=== PATIENT | male | born 1945 | race Caucasian/White ===

== ENCOUNTER → 2023-12-11 08:03 | Outpatient (REF) | payer MEDICARE, BC, SELFPAY ==
[2023-12-11 09:04] LABS: Iron 41 ug/dl (49-181)
[2023-12-11 09:13] LABS: Percent Saturation 10 % (20-50); Total Iron Binding Capacity 406 ug/dl (261-462)
[2023-12-11 09:37] LABS: Ferritin 6.9 ng/ml (17.9-464.0)
== END ==
LOC: REG 08:03
PROVIDERS: ATTENDING PHYSICIAN Internal Medicine Geriatric Medicine
DX: D50.0 Iron deficiency anemia secondary to blood loss (chronic) (principal); D64.9 Anemia, unspecified; D50.8 Other iron deficiency anemias
CPT/HCPCS: 36415; 82728; 83540; 83550

== ENCOUNTER 2024-01-03 11:39 | Outpatient (RCR) | payer MEDICARE, BC, SELFPAY ==
[2023-12-27 14:45] VITALS: BP 119/59
[2023-12-27] MEDS: INJECTAFER 265 MG IV (14:59)
[2023-12-27 15:41] VITALS: BP 115/66
[2024-01-03 11:50] VITALS: BP 139/58
[2024-01-03] MEDS: INJECTAFER 265 MG IV (12:05)
[2024-01-03 13:00] VITALS: BP 120/66
== END 2024-01-04 11:12 | disposition home or self-care (01) ==
LOC: OID 11:39
PROVIDERS: ATTENDING PHYSICIAN Internal Medicine Geriatric Medicine
DX: D50.9 Iron deficiency anemia, unspecified (principal); I48.0 Paroxysmal atrial fibrillation; R41.3 Other amnesia; I50.32 Chronic diastolic (congestive) heart failure
CPT/HCPCS: 96365; J1439

== ENCOUNTER → 2024-01-20 07:21 | Outpatient (REF) | payer MEDICARE, BC, SELFPAY ==
[2024-01-20 09:24] LABS: Blood Urea Nitrogen 28 mg/dl (9-20); Calcium 8.8 mg/dl (8.4-10.2); Carbon Dioxide 30 mmol/L (22-30); Chloride 103 mmol/L (98-107); Glucose 121 mg/dl (70-99); Phosphorus 2.6 mg/dl (2.5-4.5); Potassium 4.2 mmol/L (3.5-5.1); Sodium 141 mmol/L (135-145); eGFR 56.23
== END ==
LOC: REG 07:21
PROVIDERS: ATTENDING PHYSICIAN Internal Medicine Cardiovascular Disease; FAMILY PHYSICIAN Internal Medicine Geriatric Medicine
DX: I10 Essential (primary) hypertension (principal); I50.32 Chronic diastolic (congestive) heart failure; R60.0 Localized edema; I25.10 Atherosclerotic heart disease of native coronary artery without angina pectoris
CPT/HCPCS: 36415; 80069

== ENCOUNTER → 2024-02-17 07:51 | Outpatient (REF) | payer MEDICARE, BC, SELFPAY ==
[2024-02-17 11:00] LABS: PSA, Total - Diagnostic < 0.06 ng/ml (0.0-4.0)
[2024-02-19 02:25] LABS: % Free Testosterone <1.6 % (1.6-2.9); Free Testosterone <1 pg/mL (47-244); Sex Hormone Binding Globulin 36 nmol/L (19-76); Total Testosterone <3 ng/dL (300-720)
== END ==
LOC: REG 07:51
PROVIDERS: ATTENDING PHYSICIAN Family Medicine Geriatric Medicine; FAMILY PHYSICIAN Internal Medicine Geriatric Medicine
DX: C61 Malignant neoplasm of prostate (principal); Z79.818 Long term (current) use of other agents affecting estrogen receptors and estrogen levels
CPT/HCPCS: 36415; 84153; 84270; 84402; 84403

== ENCOUNTER → 2024-02-24 07:14 | Outpatient (REF) | payer MEDICARE, BC, SELFPAY ==
[2024-02-24 08:41] LABS: % Basophils 0.4 % (0-2); % Eosinophils 2.4 % (0-6); % Immature Granulocytes 0.2 % (0-0.5); % Lymphocytes 11.5 % (20.5-51.1); % Monocytes 11.5 % (1.7-9.3); Absolute Eosinophils 0.1 10^3/uL (0-0.7); Absolute Lymphocytes 0.5 10^3/uL (1.2-3.4); Absolute Monocytes 0.5 10^3/uL (0.1-0.6); Absolute Neutrophils 3.4 10^3/uL (1.4-6.5); Hematocrit 22.7 % (39.0-52.0); Hemoglobin 6.6 g/dL (13.0-18.0); Mean Corp Hgb Conc. 29.1 g/dL (33.0-37.0); Mean Corpuscular Volume 82.5 fL (80.0-94.0); Mean Platelet Volume 10.7 fL (7.4-10.4); Nucleated Red Blood Cells % 0 % (-); Platelet Count 181 10^3/uL (130-400); Red Blood Cell Count 2.75 10^6/uL (4.70-6.10); Red Cell Dist. Width 19.9 % (11.5-14.5); White Blood Cell Count 4.6 10^3/uL (4.8-10.8)
[2024-02-24 08:57] LABS: Iron 32 ug/dl (49-181)
[2024-02-24 09:06] LABS: Percent Saturation 8 % (20-50); Total Iron Binding Capacity 391 ug/dl (261-462)
== END ==
LOC: REG 07:14
PROVIDERS: ATTENDING PHYSICIAN Internal Medicine Hematology & Oncology
DX: D64.9 Anemia, unspecified (principal); E61.1 Iron deficiency; Z85.46 Personal history of malignant neoplasm of prostate
CPT/HCPCS: 36415; 82728; 83540; 83550; 85025; 86850; 86900; 86901

== ENCOUNTER 2024-02-28 08:20 | Outpatient (RCR) | payer MEDICARE, BC, SELFPAY ==
[2024-02-28 09:05] VITALS: BP 117/58
[2024-02-28 09:22] VITALS: BP 136/60
[2024-02-28 11:17] VITALS: BP 152/85
[2024-02-28 11:24] VITALS: BP 152/85
[2024-02-28] MEDS: LASIX 40 MG IV (11:34)
[2024-02-28 11:41] VITALS: BP 131/61
[2024-02-28 14:13] VITALS: BP 140/69
[2024-03-04 11:40] LABS: % Basophils 0.6 % (0-2); % Eosinophils 2.3 % (0-6); % Immature Granulocytes 0.4 % (0-0.5); % Lymphocytes 7.4 % (20.5-51.1); % Monocytes 8.2 % (1.7-9.3); % Neutrophils 81.1 % (42.2-75.2); Absolute Eosinophils 0.1 10^3/uL (0-0.7); Absolute Lymphocytes 0.4 10^3/uL (1.2-3.4); Absolute Monocytes 0.4 10^3/uL (0.1-0.6); Absolute Neutrophils 3.8 10^3/uL (1.4-6.5); Hematocrit 25.6 % (39.0-52.0); Hemoglobin 7.6 g/dL (13.0-18.0); Mean Corp Hgb Conc. 29.7 g/dL (33.0-37.0); Mean Corpuscular Hgb 24.1 pg (27.0-31.0); Mean Corpuscular Volume 81.3 fL (80.0-94.0); Mean Platelet Volume 10.7 fL (7.4-10.4); Nucleated Red Blood Cells % 0 % (-); Platelet Count 187 10^3/uL (130-400); Red Blood Cell Count 3.15 10^6/uL (4.70-6.10); Red Cell Dist. Width 20.8 % (11.5-14.5); White Blood Cell Count 4.7 10^3/uL (4.8-10.8)
== END 2024-03-04 14:34 | disposition home or self-care (01) ==
LOC: OID 08:20
PROVIDERS: Internal Medicine Hematology & Oncology; ATTENDING PHYSICIAN Internal Medicine Geriatric Medicine
DX: D64.9 Anemia, unspecified (principal); T45.4X5A Adverse effect of iron and its compounds, initial encounter; Y93.89 Activity, other specified; I48.91 Unspecified atrial fibrillation; Z79.01 Long term (current) use of anticoagulants
CPT/HCPCS: 36415; 36430; 85025; 86850; 86900; 86901; 86920; 96374; P9016

== ENCOUNTER → 2024-03-06 06:23 | Day surgery (SDC) | payer MEDICARE, BC, SELFPAY | LOC: GI 06:23 | PROVIDERS: ATTENDING PHYSICIAN Specialist | DX: D12.0 Benign neoplasm of cecum (principal); D12.3 Benign neoplasm of transverse colon; K63.5 Polyp of colon; K57.30 Diverticulosis of large intestine without perforation or abscess without bleeding; K22.89 Other specified disease of esophagus; K31.7 Polyp of stomach and duodenum; K31.89 Other diseases of stomach and duodenum; D50.9 Iron deficiency anemia, unspecified; R19.5 Other fecal abnormalities | CPT/HCPCS: 45385; 45380; 43239; 88305; 88342 ==

== ENCOUNTER 2024-03-07 10:02 | Outpatient (RCR) | payer MEDICARE, BC, SELFPAY ==
[2024-03-07] VITALS (7 sets, daily range): BP systolic 96–150; BP diastolic 49–74
== END 2024-04-05 23:59 | disposition home or self-care (01) ==
LOC: OID 10:02
PROVIDERS: ATTENDING PHYSICIAN Internal Medicine Hematology & Oncology; FAMILY PHYSICIAN Internal Medicine Geriatric Medicine
DX: D64.9 Anemia, unspecified (principal); T45.4X5A Adverse effect of iron and its compounds, initial encounter; Y93.89 Activity, other specified; I48.91 Unspecified atrial fibrillation; Z79.01 Long term (current) use of anticoagulants
CPT/HCPCS: 36430; 86850; 86900; 86901; 86920; P9016

== ENCOUNTER → 2024-03-28 09:42 | Outpatient (REF) | payer MEDICARE, BC, SELFPAY ==
[2024-03-28 11:05] LABS: % Basophils 0.4 % (0-2); % Eosinophils 2.9 % (0-6); % Immature Granulocytes 0.4 % (0-0.5); % Monocytes 8.8 % (1.7-9.3); % Neutrophils 76.5 % (42.2-75.2); Absolute Eosinophils 0.2 10^3/uL (0-0.7); Absolute Lymphocytes 0.6 10^3/uL (1.2-3.4); Absolute Monocytes 0.5 10^3/uL (0.1-0.6); Hematocrit 28.9 % (39.0-52.0); Hemoglobin 8.9 g/dL (13.0-18.0); Mean Corp Hgb Conc. 30.8 g/dL (33.0-37.0); Mean Corpuscular Hgb 27.4 pg (27.0-31.0); Mean Corpuscular Volume 88.9 fL (80.0-94.0); Mean Platelet Volume 10.9 fL (7.4-10.4); Nucleated Red Blood Cells % 0 % (-); Platelet Count 165 10^3/uL (130-400); Red Blood Cell Count 3.25 10^6/uL (4.70-6.10); Red Cell Dist. Width 22.5 % (11.5-14.5); White Blood Cell Count 5.2 10^3/uL (4.8-10.8)
[2024-03-28 11:56] LABS: Anisocytosis 2+; Normal RBC Morphology No
[2024-03-28 11:57] LABS: Hypochromasia 2+
== END ==
LOC: REG 09:42
PROVIDERS: ATTENDING PHYSICIAN Specialist; FAMILY PHYSICIAN Internal Medicine Geriatric Medicine
DX: K31.811 Angiodysplasia of stomach and duodenum with bleeding (principal)
CPT/HCPCS: 36415; 85025

== ENCOUNTER → 2024-03-29 06:34 | Day surgery (SDC) | payer MEDICARE, BC, SELFPAY | LOC: GI 06:34 | PROVIDERS: ATTENDING PHYSICIAN Specialist; FAMILY PHYSICIAN Internal Medicine Geriatric Medicine | DX: D50.0 Iron deficiency anemia secondary to blood loss (chronic) (principal); R93.3 Abnormal findings on diagnostic imaging of other parts of digestive tract; Z79.01 Long term (current) use of anticoagulants | CPT/HCPCS: 43235 ==

== ENCOUNTER → 2024-04-12 09:00 | Outpatient (REF) | payer MEDICARE, BC, SELFPAY ==
[2024-04-12 10:35] LABS: % Basophils 0.7 % (0-2); % Eosinophils 2.3 % (0-6); % Immature Granulocytes 0.2 % (0-0.5); % Lymphocytes 9.6 % (20.5-51.1); % Monocytes 9.4 % (1.7-9.3); % Neutrophils 77.8 % (42.2-75.2); Absolute Eosinophils 0.1 10^3/uL (0-0.7); Absolute Lymphocytes 0.6 10^3/uL (1.2-3.4); Absolute Monocytes 0.5 10^3/uL (0.1-0.6); Absolute Neutrophils 4.5 10^3/uL (1.4-6.5); Hematocrit 29.7 % (39.0-52.0); Hemoglobin 8.8 g/dL (13.0-18.0); Mean Corp Hgb Conc. 29.6 g/dL (33.0-37.0); Mean Corpuscular Hgb 26.4 pg (27.0-31.0); Mean Corpuscular Volume 89.2 fL (80.0-94.0); Mean Platelet Volume 10.2 fL (7.4-10.4); Nucleated Red Blood Cells % 0 % (-); Platelet Count 213 10^3/uL (130-400); Red Blood Cell Count 3.33 10^6/uL (4.70-6.10); Red Cell Dist. Width 19.5 % (11.5-14.5); White Blood Cell Count 5.8 10^3/uL (4.8-10.8)
[2024-04-12 10:54] LABS: Urine Albumin Negative (Neg - Trace); Urine Bilirubin Negative (Negative); Urine Character Clear (Clear); Urine Color Yellow; Urine Glucose Negative (Negative); Urine Ketone Negative (Negative); Urine Leukocyte Negative (Negative); Urine Nitrite Negative (Negative); Urine Occult Blood Negative (Negative); Urine Specific Gravity 1.015 (<1.030); Urine Urobilinogen Negative (Neg - 1+)
[2024-04-12 12:28] LABS: ALT (SGPT) 17 U/L (0-50); AST (SGOT) 22 U/L (17-59); Albumin 4.3 g/dl (3.5-5.0); Alkaline Phosphatase 64 U/L (38-126); Blood Urea Nitrogen 31 mg/dl (9-20); Calcium 9.9 mg/dl (8.4-10.2); Carbon Dioxide 30 mmol/L (22-30); Chloride 101 mmol/L (98-107); Glucose 115 mg/dl (70-99); HDL Cholesterol 38 mg/dl; Iron 41 ug/dl (49-181); LDL Cholesterol, Calculated 52 mg/dl; Potassium 3.6 mmol/L (3.5-5.1); Sodium 141 mmol/L (135-145); Total Bilirubin 0.6 mg/dl (0.2-1.3); Total Cholesterol 109 mg/dl (50-199); Total Protein 6.9 g/dl (6.3-8.2); Triglyceride 97 mg/dl (10-149); Very Low Density Lipoprotein 19 mg/dl (0-30); eGFR 56.23
[2024-04-12 12:40] LABS: Percent Saturation 11 % (20-50); Total Iron Binding Capacity 347 ug/dl (261-462)
[2024-04-12 13:13] LABS: Vitamin D, 25-OH*** 50.6 ng/mL (30-80)
[2024-04-12 13:26] LABS: TSH 1.23 uIU/ml (0.47-4.68)
== END ==
LOC: REG 09:00
PROVIDERS: ATTENDING PHYSICIAN Internal Medicine Hematology & Oncology; FAMILY PHYSICIAN Internal Medicine Geriatric Medicine; OTHER PHYSICIAN Specialist
DX: D64.9 Anemia, unspecified (principal); E61.1 Iron deficiency; Z85.46 Personal history of malignant neoplasm of prostate; D50.9 Iron deficiency anemia, unspecified; D50.0 Iron deficiency anemia secondary to blood loss (chronic); E78.2 Mixed hyperlipidemia; Z79.01 Long term (current) use of anticoagulants; R60.0 Localized edema; I48.0 Paroxysmal atrial fibrillation; G47.33 Obstructive sleep apnea (adult) (pediatric); R41.3 Other amnesia; I25.10 Atherosclerotic heart disease of native coronary artery without angina pectoris; R53.83 Other fatigue; I42.9 Cardiomyopathy, unspecified; I50.32 Chronic diastolic (congestive) heart failure; Z13.31 Encounter for screening for depression; Z79.899 Other long term (current) drug therapy
CPT/HCPCS: 36415; 80053; 80061; 81003; 82306; 82728; 83540; 83550; 84443; 85025

== ENCOUNTER → 2024-04-19 07:53 | Outpatient (REF) | payer MEDICARE, BC, SELFPAY ==
[2024-04-19 08:37] LABS: % Basophils 0.5 % (0-2); % Eosinophils 2.9 % (0-6); % Immature Granulocytes 0.2 % (0-0.5); % Lymphocytes 10.4 % (20.5-51.1); % Monocytes 10.4 % (1.7-9.3); % Neutrophils 75.6 % (42.2-75.2); Absolute Eosinophils 0.2 10^3/uL (0-0.7); Absolute Lymphocytes 0.6 10^3/uL (1.2-3.4); Absolute Monocytes 0.6 10^3/uL (0.1-0.6); Absolute Neutrophils 4.5 10^3/uL (1.4-6.5); Hematocrit 29.4 % (39.0-52.0); Hemoglobin 8.8 g/dL (13.0-18.0); Mean Corp Hgb Conc. 29.9 g/dL (33.0-37.0); Mean Corpuscular Hgb 26.1 pg (27.0-31.0); Mean Corpuscular Volume 87.2 fL (80.0-94.0); Mean Platelet Volume 10.1 fL (7.4-10.4); Nucleated Red Blood Cells % 0 % (-); Platelet Count 212 10^3/uL (130-400); Red Blood Cell Count 3.37 10^6/uL (4.70-6.10); White Blood Cell Count 5.9 10^3/uL (4.8-10.8)
== END ==
LOC: REG 07:53
PROVIDERS: ATTENDING PHYSICIAN Internal Medicine Hematology & Oncology; FAMILY PHYSICIAN Internal Medicine Geriatric Medicine
DX: D64.9 Anemia, unspecified (principal); E61.1 Iron deficiency; Z85.46 Personal history of malignant neoplasm of prostate; D50.9 Iron deficiency anemia, unspecified; R73.01 Impaired fasting glucose
CPT/HCPCS: 36415; 83036; 85025

== ENCOUNTER → 2024-04-25 09:14 | Outpatient (REF) | payer MEDICARE, BC, SELFPAY ==
[2024-04-25 11:26] LABS: % Basophils 0.4 % (0-2); % Eosinophils 2.6 % (0-6); % Immature Granulocytes 0.4 % (0-0.5); % Lymphocytes 10.6 % (20.5-51.1); % Monocytes 10.8 % (1.7-9.3); % Neutrophils 75.2 % (42.2-75.2); Absolute Eosinophils 0.1 10^3/uL (0-0.7); Absolute Lymphocytes 0.5 10^3/uL (1.2-3.4); Absolute Monocytes 0.5 10^3/uL (0.1-0.6); Absolute Neutrophils 3.7 10^3/uL (1.4-6.5); Hematocrit 28.1 % (39.0-52.0); Hemoglobin 8.5 g/dL (13.0-18.0); Mean Corp Hgb Conc. 30.2 g/dL (33.0-37.0); Mean Corpuscular Hgb 25.4 pg (27.0-31.0); Mean Corpuscular Volume 83.9 fL (80.0-94.0); Mean Platelet Volume 9.8 fL (7.4-10.4); Nucleated Red Blood Cells % 0 % (-); Platelet Count 193 10^3/uL (130-400); Red Blood Cell Count 3.35 10^6/uL (4.70-6.10); Red Cell Dist. Width 18.9 % (11.5-14.5); White Blood Cell Count 4.9 10^3/uL (4.8-10.8)
[2024-04-25 12:03] LABS: ALT (SGPT) 16 U/L (0-50); AST (SGOT) 21 U/L (17-59); Albumin 4.3 g/dl (3.5-5.0); Alkaline Phosphatase 71 U/L (38-126); Blood Urea Nitrogen 27 mg/dl (9-20); Calcium 9.6 mg/dl (8.4-10.2); Carbon Dioxide 27 mmol/L (22-30); Chloride 102 mmol/L (98-107); Glucose 113 mg/dl (70-99); HDL Cholesterol 37 mg/dl; LDL Cholesterol, Calculated 44 mg/dl; Potassium 3.5 mmol/L (3.5-5.1); Sodium 141 mmol/L (135-145); Total Bilirubin 0.5 mg/dl (0.2-1.3); Total Cholesterol 96 mg/dl (50-199); Total Protein 6.8 g/dl (6.3-8.2); Triglyceride 78 mg/dl (10-149); Very Low Density Lipoprotein 15 mg/dl (0-30); eGFR 56.23
[2024-04-25 12:15] LABS: Urine Albumin Trace (Neg - Trace); Urine Bilirubin Negative (Negative); Urine Character Clear (Clear); Urine Color Yellow; Urine Glucose Negative (Negative); Urine Ketone Negative (Negative); Urine Leukocyte Negative (Negative); Urine Nitrite Negative (Negative); Urine Occult Blood Negative (Negative); Urine Urobilinogen Negative (Neg - 1+)
[2024-04-25 12:17] LABS: Vitamin D, 25-OH*** 46.4 ng/mL (30-80)
[2024-04-25 12:31] LABS: TSH 1.67 uIU/ml (0.47-4.68)
== END ==
LOC: REG 09:14
PROVIDERS: ATTENDING PHYSICIAN Internal Medicine Hematology & Oncology; FAMILY PHYSICIAN Internal Medicine Geriatric Medicine; REFERRING PHYSICIAN Specialist
DX: D64.9 Anemia, unspecified (principal); E61.1 Iron deficiency; Z85.46 Personal history of malignant neoplasm of prostate; D50.9 Iron deficiency anemia, unspecified; I25.10 Atherosclerotic heart disease of native coronary artery without angina pectoris; E83.32 Hereditary vitamin D-dependent rickets (type 1) (type 2)
CPT/HCPCS: 36415; 80053; 80061; 81003; 82306; 84443; 85025

== ENCOUNTER → 2024-05-04 08:18 | Outpatient (REF) | payer MEDICARE, BC, SELFPAY ==
[2024-05-04 09:41] LABS: % Basophils 0.5 % (0-2); % Eosinophils 3.5 % (0-6); % Immature Granulocytes 0.2 % (0-0.5); % Lymphocytes 10.7 % (20.5-51.1); % Monocytes 10.5 % (1.7-9.3); % Neutrophils 74.6 % (42.2-75.2); Absolute Eosinophils 0.2 10^3/uL (0-0.7); Absolute Lymphocytes 0.5 10^3/uL (1.2-3.4); Absolute Monocytes 0.5 10^3/uL (0.1-0.6); Absolute Neutrophils 3.2 10^3/uL (1.4-6.5); Hematocrit 26.5 % (39.0-52.0); Hemoglobin 8.1 g/dL (13.0-18.0); Mean Corp Hgb Conc. 30.6 g/dL (33.0-37.0); Mean Corpuscular Hgb 25.1 pg (27.0-31.0); Mean Platelet Volume 10.2 fL (7.4-10.4); Nucleated Red Blood Cells % 0 % (-); Platelet Count 191 10^3/uL (130-400); Red Blood Cell Count 3.23 10^6/uL (4.70-6.10); Red Cell Dist. Width 18.8 % (11.5-14.5); White Blood Cell Count 4.3 10^3/uL (4.8-10.8)
[2024-05-04 09:56] LABS: ALT (SGPT) 20 U/L (0-50); AST (SGOT) 24 U/L (17-59); Albumin 4.2 g/dl (3.5-5.0); Alkaline Phosphatase 64 U/L (38-126); Blood Urea Nitrogen 33 mg/dl (9-20); Calcium 9.6 mg/dl (8.4-10.2); Carbon Dioxide 29 mmol/L (22-30); Chloride 106 mmol/L (98-107); Glucose 117 mg/dl (70-99); Iron 34 ug/dl (49-181); Magnesium 2.2 mg/dl (1.6-2.3); Potassium 3.9 mmol/L (3.5-5.1); Sodium 141 mmol/L (135-145); Total Bilirubin 0.5 mg/dl (0.2-1.3); Total Protein 6.8 g/dl (6.3-8.2); eGFR 56.23
[2024-05-04 10:05] LABS: Percent Saturation 9 % (20-50); Total Iron Binding Capacity 370 ug/dl (261-462)
[2024-05-04 10:12] LABS: NT-proBNP 1010 pg/ml
[2024-05-04 10:31] LABS: Ferritin 6.1 ng/ml (17.9-464.0)
[2024-05-04 11:09] LABS: Folate > 20.0 ng/ml (2.76-20); Vitamin B12 581 pg/ml (239-931)
== END ==
LOC: REG 08:18
PROVIDERS: ATTENDING PHYSICIAN Internal Medicine Cardiovascular Disease; FAMILY PHYSICIAN Internal Medicine Geriatric Medicine; REFERRING PHYSICIAN Nurse Practitioner Family
DX: I48.21 Permanent atrial fibrillation (principal); I10 Essential (primary) hypertension; I50.32 Chronic diastolic (congestive) heart failure; R60.0 Localized edema; I25.10 Atherosclerotic heart disease of native coronary artery without angina pectoris; I77.810 Thoracic aortic ectasia; E78.2 Mixed hyperlipidemia; E79.2 Myoadenylate deaminase deficiency; Z79.01 Long term (current) use of anticoagulants; D50.9 Iron deficiency anemia, unspecified; I48.0 Paroxysmal atrial fibrillation; G47.33 Obstructive sleep apnea (adult) (pediatric); R41.3 Other amnesia; R53.83 Other fatigue; I42.9 Cardiomyopathy, unspecified; Z13.31 Encounter for screening for depression; D64.9 Anemia, unspecified; E61.1 Iron deficiency; Z85.46 Personal history of malignant neoplasm of prostate
CPT/HCPCS: 36415; 80053; 82607; 82728; 82746; 83540; 83550; 83735; 83880; 85025

== ENCOUNTER → 2024-05-13 14:10 | Outpatient (REF) | payer MEDICARE, BC, SELFPAY ==
[2024-05-13 13:37] LABS: % Basophils 0.5 % (0-2); % Eosinophils 2.5 % (0-6); % Immature Granulocytes 0.2 % (0-0.5); % Lymphocytes 9.6 % (20.5-51.1); % Monocytes 11.4 % (1.7-9.3); % Neutrophils 75.8 % (42.2-75.2); Absolute Eosinophils 0.2 10^3/uL (0-0.7); Absolute Lymphocytes 0.6 10^3/uL (1.2-3.4); Absolute Monocytes 0.7 10^3/uL (0.1-0.6); Absolute Neutrophils 4.8 10^3/uL (1.4-6.5); Hematocrit 25.6 % (39.0-52.0); Hemoglobin 7.7 g/dL (13.0-18.0); Mean Corp Hgb Conc. 30.1 g/dL (33.0-37.0); Mean Corpuscular Volume 79.8 fL (80.0-94.0); Mean Platelet Volume 10.2 fL (7.4-10.4); Nucleated Red Blood Cells % 0 % (-); Platelet Count 221 10^3/uL (130-400); Red Blood Cell Count 3.21 10^6/uL (4.70-6.10); White Blood Cell Count 6.3 10^3/uL (4.8-10.8)
== END ==
LOC: OIDL 14:10
PROVIDERS: ATTENDING PHYSICIAN Nurse Practitioner Family
DX: D64.9 Anemia, unspecified (principal); E61.1 Iron deficiency; Z85.46 Personal history of malignant neoplasm of prostate
CPT/HCPCS: 85025

== ENCOUNTER → 2024-05-24 07:40 | Outpatient (REF) | payer MEDICARE, BC, SELFPAY ==
[2024-05-24 08:31] LABS: % Basophils 0.6 % (0-2); % Immature Granulocytes 0.2 % (0-0.5); % Lymphocytes 9.4 % (20.5-51.1); % Monocytes 10.2 % (1.7-9.3); % Neutrophils 76.4 % (42.2-75.2); Absolute Eosinophils 0.2 10^3/uL (0-0.7); Absolute Lymphocytes 0.4 10^3/uL (1.2-3.4); Absolute Monocytes 0.5 10^3/uL (0.1-0.6); Absolute Neutrophils 3.6 10^3/uL (1.4-6.5); Hematocrit 29.7 % (39.0-52.0); Hemoglobin 8.7 g/dL (13.0-18.0); Mean Corp Hgb Conc. 29.4 g/dL (33.0-37.0); Mean Corpuscular Hgb 25.1 pg (27.0-31.0); Mean Corpuscular Volume 85.3 fL (80.0-94.0); Nucleated Red Blood Cells % 0 % (-); Platelet Count 167 10^3/uL (130-400); Red Blood Cell Count 3.39 10^6/uL (4.70-6.10); Red Cell Dist. Width 24.2 % (11.5-14.5); White Blood Cell Count 4.7 10^3/uL (4.8-10.8)
[2024-05-24 10:21] LABS: Anisocytosis 1+; Normal RBC Morphology No
[2024-05-24 10:22] LABS: Hypochromasia 2+
== END ==
LOC: REG 07:40
PROVIDERS: ATTENDING PHYSICIAN Internal Medicine Hematology & Oncology; FAMILY PHYSICIAN Internal Medicine Geriatric Medicine
DX: D64.9 Anemia, unspecified (principal); E61.1 Iron deficiency; Z85.46 Personal history of malignant neoplasm of prostate; D50.9 Iron deficiency anemia, unspecified
CPT/HCPCS: 36415; 85025; 86850; 86900; 86901

== ENCOUNTER → 2024-06-04 08:44 | Outpatient (REF) | payer MEDICARE, BC, SELFPAY ==
[2024-06-04 09:55] LABS: % Basophils 0.9 % (0-2); % Eosinophils 2.8 % (0-6); % Immature Granulocytes 0.5 % (0-0.5); % Lymphocytes 12.2 % (20.5-51.1); % Monocytes 10.8 % (1.7-9.3); % Neutrophils 72.8 % (42.2-75.2); Absolute Eosinophils 0.1 10^3/uL (0-0.7); Absolute Lymphocytes 0.5 10^3/uL (1.2-3.4); Absolute Monocytes 0.5 10^3/uL (0.1-0.6); Absolute Neutrophils 3.2 10^3/uL (1.4-6.5); Hematocrit 30.9 % (39.0-52.0); Hemoglobin 9.2 g/dL (13.0-18.0); Mean Corp Hgb Conc. 29.8 g/dL (33.0-37.0); Mean Corpuscular Hgb 25.3 pg (27.0-31.0); Mean Corpuscular Volume 84.9 fL (80.0-94.0); Mean Platelet Volume 10.6 fL (7.4-10.4); Nucleated Red Blood Cells % 0 % (-); Platelet Count 188 10^3/uL (130-400); Red Blood Cell Count 3.64 10^6/uL (4.70-6.10); Red Cell Dist. Width 23.3 % (11.5-14.5); White Blood Cell Count 4.3 10^3/uL (4.8-10.8)
== END ==
LOC: REG 08:44
PROVIDERS: ATTENDING PHYSICIAN Internal Medicine Hematology & Oncology; FAMILY PHYSICIAN Internal Medicine Geriatric Medicine
DX: D64.9 Anemia, unspecified (principal); E61.1 Iron deficiency; Z85.46 Personal history of malignant neoplasm of prostate; D50.9 Iron deficiency anemia, unspecified
CPT/HCPCS: 36415; 85025; 86850; 86900; 86901

== ENCOUNTER → 2024-06-11 09:17 | Outpatient (REF) | payer MEDICARE, BC, SELFPAY ==
[2024-06-11 10:52] LABS: % Basophils 0.5 % (0-2); % Eosinophils 2.8 % (0-6); % Immature Granulocytes 0.2 % (0-0.5); % Lymphocytes 12.5 % (20.5-51.1); % Monocytes 11.8 % (1.7-9.3); % Neutrophils 72.2 % (42.2-75.2); Absolute Eosinophils 0.1 10^3/uL (0-0.7); Absolute Lymphocytes 0.5 10^3/uL (1.2-3.4); Absolute Monocytes 0.5 10^3/uL (0.1-0.6); Absolute Neutrophils 3.1 10^3/uL (1.4-6.5); Hematocrit 30.2 % (39.0-52.0); Hemoglobin 9.2 g/dL (13.0-18.0); Mean Corp Hgb Conc. 30.5 g/dL (33.0-37.0); Mean Corpuscular Hgb 25.6 pg (27.0-31.0); Mean Corpuscular Volume 84.1 fL (80.0-94.0); Mean Platelet Volume 10.7 fL (7.4-10.4); Nucleated Red Blood Cells % 0 % (-); Platelet Count 176 10^3/uL (130-400); Red Blood Cell Count 3.59 10^6/uL (4.70-6.10); Red Cell Dist. Width 22.3 % (11.5-14.5); White Blood Cell Count 4.3 10^3/uL (4.8-10.8)
[2024-06-11 11:40] LABS: Anisocytosis 1+; Hypochromasia 1+; Normal RBC Morphology No; Ovalocytes Slight
== END ==
LOC: REG 09:17
PROVIDERS: ATTENDING PHYSICIAN Internal Medicine Hematology & Oncology; FAMILY PHYSICIAN Internal Medicine Geriatric Medicine
DX: D64.9 Anemia, unspecified (principal); E61.1 Iron deficiency; Z85.46 Personal history of malignant neoplasm of prostate; D50.9 Iron deficiency anemia, unspecified
CPT/HCPCS: 36415; 85025

== ENCOUNTER → 2024-06-14 06:23 | Day surgery (SDC) | payer MEDICARE, BC, SELFPAY | LOC: GI 06:23 | PROVIDERS: ATTENDING PHYSICIAN Specialist | DX: D50.0 Iron deficiency anemia secondary to blood loss (chronic) (principal); K55.20 Angiodysplasia of colon without hemorrhage | CPT/HCPCS: 44366 ==

== ENCOUNTER → 2024-06-20 08:11 | Outpatient (REF) | payer MEDICARE, BC, SELFPAY ==
[2024-06-20 09:45] LABS: % Basophils 0.5 % (0-2); % Eosinophils 2.6 % (0-6); % Immature Granulocytes 0.2 % (0-0.5); % Lymphocytes 14.1 % (20.5-51.1); % Monocytes 10.1 % (1.7-9.3); % Neutrophils 72.5 % (42.2-75.2); Absolute Eosinophils 0.1 10^3/uL (0-0.7); Absolute Lymphocytes 0.6 10^3/uL (1.2-3.4); Absolute Monocytes 0.4 10^3/uL (0.1-0.6); Hemoglobin 9.6 g/dL (13.0-18.0); Mean Corpuscular Hgb 25.7 pg (27.0-31.0); Mean Corpuscular Volume 85.6 fL (80.0-94.0); Mean Platelet Volume 10.7 fL (7.4-10.4); Nucleated Red Blood Cells % 0 % (-); Platelet Count 166 10^3/uL (130-400); Red Blood Cell Count 3.74 10^6/uL (4.70-6.10); Red Cell Dist. Width 21.1 % (11.5-14.5); White Blood Cell Count 4.2 10^3/uL (4.8-10.8)
[2024-06-20 10:36] LABS: Iron 30 ug/dl (49-181)
[2024-06-20 10:46] LABS: Percent Saturation 8 % (20-50); Total Iron Binding Capacity 341 ug/dl (261-462)
[2024-06-20 11:04] LABS: Ferritin 18.8 ng/ml (17.9-464.0)
[2024-06-20 11:35] LABS: Folate 19.8 ng/ml (2.76-20); Vitamin B12 608 pg/ml (239-931)
== END ==
LOC: REG 08:11
PROVIDERS: ATTENDING PHYSICIAN Internal Medicine Hematology & Oncology; FAMILY PHYSICIAN Internal Medicine Geriatric Medicine
DX: D64.9 Anemia, unspecified (principal); E61.1 Iron deficiency; Z85.46 Personal history of malignant neoplasm of prostate; D50.9 Iron deficiency anemia, unspecified; D52.9 Folate deficiency anemia, unspecified; D51.8 Other vitamin B12 deficiency anemias
CPT/HCPCS: 36415; 82607; 82728; 82746; 83540; 83550; 85025

== ENCOUNTER → 2024-06-24 06:23 | Outpatient (REF) | payer MEDICARE, BC, SELFPAY ==
[2024-06-24 07:53] LABS: % Basophils 0.7 % (0-2); % Eosinophils 2.3 % (0-6); % Immature Granulocytes 0.5 % (0-0.5); % Lymphocytes 13.4 % (20.5-51.1); % Monocytes 10.8 % (1.7-9.3); % Neutrophils 72.3 % (42.2-75.2); Absolute Eosinophils 0.1 10^3/uL (0-0.7); Absolute Lymphocytes 0.6 10^3/uL (1.2-3.4); Absolute Monocytes 0.5 10^3/uL (0.1-0.6); Absolute Neutrophils 3.1 10^3/uL (1.4-6.5); Hematocrit 29.3 % (39.0-52.0); Hemoglobin 8.9 g/dL (13.0-18.0); Mean Corp Hgb Conc. 30.4 g/dL (33.0-37.0); Mean Corpuscular Hgb 25.2 pg (27.0-31.0); Mean Platelet Volume 10.4 fL (7.4-10.4); Nucleated Red Blood Cells % 0 % (-); Platelet Count 163 10^3/uL (130-400); Red Blood Cell Count 3.53 10^6/uL (4.70-6.10); Red Cell Dist. Width 20.9 % (11.5-14.5); White Blood Cell Count 4.3 10^3/uL (4.8-10.8)
[2024-06-24 08:00] LABS: Iron 22 ug/dl (49-181)
[2024-06-24 08:10] LABS: Percent Saturation 6 % (20-50); Total Iron Binding Capacity 339 ug/dl (261-462)
[2024-06-24 09:15] LABS: Folate > 20.0 ng/ml (2.76-20); Vitamin B12 566 pg/ml (239-931)
[2024-06-24 09:29] LABS: Ferritin 11.5 ng/ml (17.9-464.0)
== END ==
LOC: REG 06:23
PROVIDERS: ATTENDING PHYSICIAN Internal Medicine Hematology & Oncology; FAMILY PHYSICIAN Internal Medicine Geriatric Medicine
DX: D64.9 Anemia, unspecified (principal); E61.1 Iron deficiency; Z85.46 Personal history of malignant neoplasm of prostate; D50.9 Iron deficiency anemia, unspecified; D51.9 Vitamin B12 deficiency anemia, unspecified; D51.8 Other vitamin B12 deficiency anemias
CPT/HCPCS: 36415; 82607; 82728; 82746; 83540; 83550; 85025

== ENCOUNTER → 2024-07-04 11:45 | Outpatient (REF) | payer MEDICARE, BC, SELFPAY ==
[2024-07-04 12:22] LABS: % Basophils 0.4 % (0-2); % Eosinophils 1.1 % (0-6); % Immature Granulocytes 0.2 % (0-0.5); % Monocytes 9.5 % (1.7-9.3); % Neutrophils 80.8 % (42.2-75.2); Absolute Eosinophils 0.1 10^3/uL (0-0.7); Absolute Lymphocytes 0.4 10^3/uL (1.2-3.4); Absolute Monocytes 0.5 10^3/uL (0.1-0.6); Absolute Neutrophils 4.3 10^3/uL (1.4-6.5); Hematocrit 30.3 % (39.0-52.0); Hemoglobin 9.4 g/dL (13.0-18.0); Mean Corpuscular Hgb 25.5 pg (27.0-31.0); Mean Corpuscular Volume 82.3 fL (80.0-94.0); Mean Platelet Volume 10.4 fL (7.4-10.4); Nucleated Red Blood Cells % 0 % (-); Platelet Count 169 10^3/uL (130-400); Red Blood Cell Count 3.68 10^6/uL (4.70-6.10); Red Cell Dist. Width 19.9 % (11.5-14.5); White Blood Cell Count 5.4 10^3/uL (4.8-10.8)
== END ==
LOC: OIDL 11:45
PROVIDERS: ATTENDING PHYSICIAN Internal Medicine Hematology & Oncology
DX: D64.9 Anemia, unspecified (principal); E61.1 Iron deficiency; Z85.46 Personal history of malignant neoplasm of prostate; D50.9 Iron deficiency anemia, unspecified
CPT/HCPCS: 85025

== ENCOUNTER → 2024-07-17 20:30 | Outpatient (REF) | payer MEDICARE, BC, SELFPAY | LOC: DHSLP 20:30 | PROVIDERS: ATTENDING PHYSICIAN Internal Medicine Critical Care Medicine; FAMILY PHYSICIAN Internal Medicine Geriatric Medicine | DX: G47.33 Obstructive sleep apnea (adult) (pediatric) (principal); G47.61 Periodic limb movement disorder | CPT/HCPCS: 95811 ==

== ENCOUNTER → 2024-07-24 07:25 | Outpatient (REF) | payer MEDICARE, BC, SELFPAY ==
[2024-07-24 08:29] LABS: Albumin 4.3 g/dl (3.5-5.0); Blood Urea Nitrogen 21 mg/dl (9-20); Calcium 9.4 mg/dl (8.4-10.2); Carbon Dioxide 31 mmol/L (22-30); Chloride 101 mmol/L (98-107); Glucose 124 mg/dl (70-99); Phosphorus 2.4 mg/dl (2.5-4.5); Potassium 4.4 mmol/L (3.5-5.1); Sodium 144 mmol/L (135-145); eGFR > 60.00
== END ==
LOC: REG 07:25
PROVIDERS: ATTENDING PHYSICIAN Internal Medicine Cardiovascular Disease; FAMILY PHYSICIAN Internal Medicine Geriatric Medicine
DX: I48.21 Permanent atrial fibrillation (principal); I10 Essential (primary) hypertension; R60.0 Localized edema; I35.0 Nonrheumatic aortic (valve) stenosis
CPT/HCPCS: 36415; 80069

== ENCOUNTER → 2024-07-26 13:44 | Outpatient (REF) | payer MEDICARE, BC, SELFPAY | LOC: RCS 13:44 | PROVIDERS: ATTENDING PHYSICIAN Internal Medicine Cardiovascular Disease; FAMILY PHYSICIAN Internal Medicine Geriatric Medicine | DX: I48.21 Permanent atrial fibrillation (principal); I50.32 Chronic diastolic (congestive) heart failure; R60.0 Localized edema; I35.0 Nonrheumatic aortic (valve) stenosis | CPT/HCPCS: 93306 ==

== ENCOUNTER → 2024-08-01 12:01 | Outpatient (REF) | payer MEDICARE, BC, SELFPAY ==
[2024-08-01 11:57] LABS: % Basophils 0.4 % (0-2); % Eosinophils 1.6 % (0-6); % Immature Granulocytes 0.2 % (0-0.5); % Lymphocytes 8.9 % (20.5-51.1); % Monocytes 9.4 % (1.7-9.3); % Neutrophils 79.5 % (42.2-75.2); Absolute Eosinophils 0.1 10^3/uL (0-0.7); Absolute Lymphocytes 0.4 10^3/uL (1.2-3.4); Absolute Monocytes 0.4 10^3/uL (0.1-0.6); Absolute Neutrophils 3.6 10^3/uL (1.4-6.5); Hematocrit 33.1 % (39.0-52.0); Hemoglobin 9.9 g/dL (13.0-18.0); Mean Corp Hgb Conc. 29.9 g/dL (33.0-37.0); Mean Corpuscular Hgb 26.1 pg (27.0-31.0); Mean Corpuscular Volume 87.1 fL (80.0-94.0); Mean Platelet Volume 9.9 fL (7.4-10.4); Platelet Count 154 10^3/uL (130-400); Red Cell Dist. Width 21.6 % (11.5-14.5); White Blood Cell Count 4.5 10^3/uL (4.8-10.8)
[2024-08-01 13:26] LABS: Iron 46 ug/dl (49-181)
[2024-08-01 13:35] LABS: Percent Saturation 15 % (20-50); Total Iron Binding Capacity 290 ug/dl (261-462)
[2024-08-01 14:01] LABS: Ferritin 35.6 ng/ml (17.9-464.0)
== END ==
LOC: OIDL 12:01
PROVIDERS: ATTENDING PHYSICIAN Internal Medicine Hematology & Oncology
DX: D64.9 Anemia, unspecified (principal)
CPT/HCPCS: 82728; 83540; 83550; 85025

== ENCOUNTER → 2024-08-05 07:28 | Outpatient (REF) | payer MEDICARE, BC, SELFPAY ==
[2024-08-05 09:05] LABS: PSA, Total - Diagnostic < 0.06 ng/ml (0.0-4.0)
[2024-08-06 15:23] LABS: % Free Testosterone 1.6 % (1.6-2.9); Free Testosterone 2 pg/mL (47-244); Sex Hormone Binding Globulin 33 nmol/L (19-76); Total Testosterone 10 ng/dL (300-720)
== END ==
LOC: REG 07:28
PROVIDERS: ATTENDING PHYSICIAN Family Medicine Geriatric Medicine; FAMILY PHYSICIAN Internal Medicine Geriatric Medicine
DX: C61 Malignant neoplasm of prostate (principal); Z79.818 Long term (current) use of other agents affecting estrogen receptors and estrogen levels
CPT/HCPCS: 36415; 84153; 84270; 84402; 84403

== ENCOUNTER 2024-08-13 06:21 | Outpatient (RCR) | payer MEDICARE, BC, SELFPAY | END 2024-08-13 23:59 | disposition home or self-care (01) | LOC: RPT 06:21 | PROVIDERS: ATTENDING PHYSICIAN Specialist; FAMILY PHYSICIAN Internal Medicine Geriatric Medicine | DX: I89.0 Lymphedema, not elsewhere classified (principal); Z73.6 Limitation of activities due to disability; Z85.46 Personal history of malignant neoplasm of prostate | CPT/HCPCS: 97163; 97535; 97760 ==

== ENCOUNTER → 2024-08-19 07:05 | Outpatient (REF) | payer MEDICARE, BC, SELFPAY ==
[2024-08-19 07:31] LABS: % Basophils 0.4 % (0-2); % Eosinophils 2.7 % (0-6); % Immature Granulocytes 0.2 % (0-0.5); % Lymphocytes 10.4 % (20.5-51.1); % Monocytes 10.4 % (1.7-9.3); % Neutrophils 75.9 % (42.2-75.2); Absolute Eosinophils 0.1 10^3/uL (0-0.7); Absolute Lymphocytes 0.5 10^3/uL (1.2-3.4); Absolute Monocytes 0.5 10^3/uL (0.1-0.6); Absolute Neutrophils 3.7 10^3/uL (1.4-6.5); Hematocrit 32.4 % (39.0-52.0); Hemoglobin 9.9 g/dL (13.0-18.0); Mean Corp Hgb Conc. 30.6 g/dL (33.0-37.0); Mean Corpuscular Hgb 26.5 pg (27.0-31.0); Mean Corpuscular Volume 86.6 fL (80.0-94.0); Nucleated Red Blood Cells % 0 % (-); Platelet Count 143 10^3/uL (130-400); Red Blood Cell Count 3.74 10^6/uL (4.70-6.10); Red Cell Dist. Width 21.7 % (11.5-14.5); White Blood Cell Count 4.9 10^3/uL (4.8-10.8)
[2024-08-19 08:17] LABS: Iron 49 ug/dl (49-181)
[2024-08-19 08:26] LABS: Percent Saturation 19 % (20-50); Total Iron Binding Capacity 253 ug/dl (261-462)
== END ==
LOC: REG 07:05
PROVIDERS: ATTENDING PHYSICIAN Internal Medicine Hematology & Oncology; FAMILY PHYSICIAN Internal Medicine Geriatric Medicine
DX: D64.9 Anemia, unspecified (principal); E61.1 Iron deficiency; Z85.46 Personal history of malignant neoplasm of prostate; D50.9 Iron deficiency anemia, unspecified
CPT/HCPCS: 36415; 82728; 83540; 83550; 85025

== ENCOUNTER → 2024-08-30 15:39 | Outpatient (REF) | payer MEDICARE, BC, SELFPAY ==
[2024-08-30 12:01] LABS: Blood Urea Nitrogen 22 mg/dl (9-20)
== END ==
LOC: OIDL 15:39
PROVIDERS: ATTENDING PHYSICIAN Nurse Practitioner Adult Health
DX: D64.9 Anemia, unspecified (principal); D50.9 Iron deficiency anemia, unspecified
CPT/HCPCS: 82565; 84520

== ENCOUNTER 2024-10-01 06:36 | Outpatient (RCR) | payer MEDICARE, BC, SELFPAY | END 2024-10-01 23:59 | disposition home or self-care (01) | LOC: RPT 06:36 | PROVIDERS: ATTENDING PHYSICIAN Specialist; FAMILY PHYSICIAN Internal Medicine Geriatric Medicine | DX: I89.0 Lymphedema, not elsewhere classified (principal); Z73.6 Limitation of activities due to disability; Z85.46 Personal history of malignant neoplasm of prostate; R26.89 Other abnormalities of gait and mobility | CPT/HCPCS: 97535 ==

== ENCOUNTER → 2024-10-16 08:52 | Outpatient (REF) | payer MEDICARE, BC, SELFPAY ==
[2024-10-16 10:00] LABS: % Basophils 0.5 % (0-2); % Eosinophils 3.1 % (0-6); % Immature Granulocytes 0.3 % (0-0.5); % Lymphocytes 14.4 % (20.5-51.1); % Monocytes 8.2 % (1.7-9.3); % Neutrophils 73.5 % (42.2-75.2); Absolute Eosinophils 0.1 10^3/uL (0-0.7); Absolute Lymphocytes 0.6 10^3/uL (1.2-3.4); Absolute Monocytes 0.3 10^3/uL (0.1-0.6); Absolute Neutrophils 2.9 10^3/uL (1.4-6.5); Hematocrit 36.3 % (39.0-52.0); Hemoglobin 11.1 g/dL (13.0-18.0); Mean Corp Hgb Conc. 30.6 g/dL (33.0-37.0); Mean Corpuscular Hgb 27.3 pg (27.0-31.0); Mean Corpuscular Volume 89.2 fL (80.0-94.0); Mean Platelet Volume 10.2 fL (7.4-10.4); Nucleated Red Blood Cells % 0 % (-); Platelet Count 193 10^3/uL (130-400); Red Blood Cell Count 4.07 10^6/uL (4.70-6.10); Red Cell Dist. Width 17.8 % (11.5-14.5); White Blood Cell Count 3.9 10^3/uL (4.8-10.8)
[2024-10-16 11:22] LABS: ALT (SGPT) 17 U/L (0-50); AST (SGOT) 21 U/L (17-59); Albumin 4.3 g/dl (3.5-5.0); Alkaline Phosphatase 93 U/L (38-126); Blood Urea Nitrogen 23 mg/dl (9-20); Calcium 9.6 mg/dl (8.4-10.2); Carbon Dioxide 30 mmol/L (22-30); Chloride 103 mmol/L (98-107); Glucose 123 mg/dl (70-99); Iron 62 ug/dl (49-181); Sodium 143 mmol/L (135-145); Total Bilirubin 0.5 mg/dl (0.2-1.3); eGFR > 60.00
[2024-10-16 11:32] LABS: Percent Saturation 21 % (20-50); Total Iron Binding Capacity 286 ug/dl (261-462)
== END ==
LOC: REG 08:52
PROVIDERS: ATTENDING PHYSICIAN Internal Medicine Hematology & Oncology; FAMILY PHYSICIAN Internal Medicine Geriatric Medicine; REFERRING PHYSICIAN Nurse Practitioner Family
DX: M54.50 Low back pain, unspecified (principal); D64.9 Anemia, unspecified; E61.1 Iron deficiency; Z85.46 Personal history of malignant neoplasm of prostate; D50.9 Iron deficiency anemia, unspecified
CPT/HCPCS: 36415; 80053; 82728; 83540; 83550; 85025

== ENCOUNTER 2024-10-25 14:38 | Outpatient (RCR) | payer MEDICARE, BC, SELFPAY | END 2024-10-25 23:59 | disposition home or self-care (01) | LOC: RPT 14:38 | PROVIDERS: ATTENDING PHYSICIAN Specialist; FAMILY PHYSICIAN Internal Medicine Geriatric Medicine | DX: I89.0 Lymphedema, not elsewhere classified (principal); Z73.6 Limitation of activities due to disability; R26.89 Other abnormalities of gait and mobility; Z85.46 Personal history of malignant neoplasm of prostate | CPT/HCPCS: 97140; 97535 ==

== ENCOUNTER → 2024-10-26 10:10 | Outpatient (REF) | payer MEDICARE, BC, SELFPAY | LOC: PAVMRI 10:10 | PROVIDERS: ATTENDING PHYSICIAN Nurse Practitioner Family; FAMILY PHYSICIAN Internal Medicine Geriatric Medicine | DX: M54.50 Low back pain, unspecified (principal) | CPT/HCPCS: 72148 ==

== ENCOUNTER → 2024-11-05 06:47 | Outpatient (REF) | payer MEDICARE, BC, SELFPAY ==
[2024-11-05 08:02] LABS: % Basophils 0.5 % (0-2); % Immature Granulocytes 0.2 % (0-0.5); % Lymphocytes 11.4 % (20.5-51.1); % Monocytes 8.9 % (1.7-9.3); Absolute Eosinophils 0.1 10^3/uL (0-0.7); Absolute Lymphocytes 0.5 10^3/uL (1.2-3.4); Absolute Monocytes 0.4 10^3/uL (0.1-0.6); Absolute Neutrophils 3.3 10^3/uL (1.4-6.5); Hematocrit 31.7 % (39.0-52.0); Hemoglobin 9.6 g/dL (13.0-18.0); Mean Corp Hgb Conc. 30.3 g/dL (33.0-37.0); Mean Corpuscular Volume 89.3 fL (80.0-94.0); Mean Platelet Volume 10.6 fL (7.4-10.4); Nucleated Red Blood Cells % 0 % (-); Platelet Count 136 10^3/uL (130-400); Red Blood Cell Count 3.55 10^6/uL (4.70-6.10); Red Cell Dist. Width 17.8 % (11.5-14.5); White Blood Cell Count 4.4 10^3/uL (4.8-10.8)
[2024-11-05 08:50] LABS: Absolute Neutrophils -Man Diff 3.5 10^3/uL (1.4-6.5); Band Neutrophils 0 % (0-3); Eosinophils 3 % (0-6); Lymphocytes 11 % (20-51); Monocytes 5 % (2-9); Segmented Neutrophils 81 % (42-75)
[2024-11-05 08:51] LABS: Normal RBC Morphology Yes; Platelets Checked Yes; Total Cells Counted 100
[2024-11-07 21:44] LABS: Albumin 3.87 g/dL (3.75-5.01); Alpha 1 Globulin 0.32 g/dL (0.19-0.46); Alpha 2 Globulin 0.84 g/dL (0.48-1.05); SPEP IFE Reflex Not Done; Total Protein-Electrophoresis 6.6 g/dL (6.3-8.2)
== END ==
LOC: REG 06:47
PROVIDERS: ATTENDING PHYSICIAN Nurse Practitioner Family; FAMILY PHYSICIAN Internal Medicine Geriatric Medicine
DX: R89.9 Unspecified abnormal finding in specimens from other organs, systems and tissues (principal); S32.029S Unspecified fracture of second lumbar vertebra, sequela
CPT/HCPCS: 36415; 84155; 84165; 85025

== ENCOUNTER → 2024-11-08 06:24 | Outpatient (REF) | payer MEDICARE, BC, SELFPAY ==
[2024-11-08 08:08] LABS: Vitamin D, 25-OH*** 40.4 ng/mL (30-80)
== END ==
LOC: REG 06:24
PROVIDERS: ATTENDING PHYSICIAN Nurse Practitioner Family
DX: E55.9 Vitamin D deficiency, unspecified (principal)
CPT/HCPCS: 36415; 82306

== ENCOUNTER 2024-11-29 14:43 | Outpatient (RCR) | payer MEDICARE, BC, SELFPAY | END 2024-11-29 23:59 | disposition home or self-care (01) | LOC: RPT 14:43 | PROVIDERS: ATTENDING PHYSICIAN Specialist; FAMILY PHYSICIAN Internal Medicine Geriatric Medicine | DX: I89.0 Lymphedema, not elsewhere classified (principal); Z73.6 Limitation of activities due to disability; C61 Malignant neoplasm of prostate; R26.89 Other abnormalities of gait and mobility; Z92.3 Personal history of irradiation; Z85.46 Personal history of malignant neoplasm of prostate | CPT/HCPCS: 97140; 97535 ==

== ENCOUNTER → 2024-12-20 14:14 | Outpatient (REF) | payer MEDICARE, BC, SELFPAY ==
[2024-12-20 14:56] LABS: % Basophils 0.6 % (0-2); % Eosinophils 1.9 % (0-6); % Immature Granulocytes 0.2 % (0-0.5); % Lymphocytes 12.5 % (20.5-51.1); % Monocytes 11.4 % (1.7-9.3); % Neutrophils 73.4 % (42.2-75.2); Absolute Eosinophils 0.1 10^3/uL (0-0.7); Absolute Lymphocytes 0.7 10^3/uL (1.2-3.4); Absolute Monocytes 0.6 10^3/uL (0.1-0.6); Absolute Neutrophils 3.8 10^3/uL (1.4-6.5); Hematocrit 31.6 % (39.0-52.0); Hemoglobin 9.3 g/dL (13.0-18.0); Mean Corp Hgb Conc. 29.4 g/dL (33.0-37.0); Mean Corpuscular Volume 81.4 fL (80.0-94.0); Mean Platelet Volume 10.3 fL (7.4-10.4); Nucleated Red Blood Cells % 0 % (-); Platelet Count 173 10^3/uL (130-400); Red Blood Cell Count 3.88 10^6/uL (4.70-6.10); Red Cell Dist. Width 17.5 % (11.5-14.5); White Blood Cell Count 5.2 10^3/uL (4.8-10.8)
[2024-12-20 15:29] LABS: Iron 46 ug/dl (49-181)
[2024-12-20 15:39] LABS: Percent Saturation 12 % (20-50); Total Iron Binding Capacity 373 ug/dl (261-462)
[2024-12-20 16:12] LABS: Ferritin 8.5 ng/ml (17.9-464.0)
== END ==
LOC: REG 14:14
PROVIDERS: ATTENDING PHYSICIAN Internal Medicine Hematology & Oncology
DX: D64.9 Anemia, unspecified (principal); E61.1 Iron deficiency; Z85.46 Personal history of malignant neoplasm of prostate; D50.9 Iron deficiency anemia, unspecified
CPT/HCPCS: 36415; 82728; 83540; 83550; 85025

== ENCOUNTER → 2024-12-31 11:56 | Outpatient (REF) | payer MEDICARE, BC, SELFPAY ==
[2024-12-31 13:16] LABS: ALT (SGPT) 17 U/L (0-50); AST (SGOT) 23 U/L (17-59); Albumin 4.1 g/dl (3.5-5.0); Alkaline Phosphatase 84 U/L (38-126); Blood Urea Nitrogen 15 mg/dl (9-20); Calcium 9.4 mg/dl (8.4-10.2); Carbon Dioxide 30 mmol/L (22-30); Chloride 103 mmol/L (98-107); Glucose 124 mg/dl (70-99); Potassium 3.6 mmol/L (3.5-5.1); Sodium 142 mmol/L (135-145); Total Bilirubin 0.6 mg/dl (0.2-1.3); Total Protein 6.7 g/dl (6.3-8.2); eGFR > 60.00
[2024-12-31 13:21] LABS: NT-proBNP 1320 pg/ml
[2024-12-31 15:03] LABS: % Basophils 0.3 % (0-2); % Immature Granulocytes 0.4 % (0-0.5); % Lymphocytes 8.6 % (20.5-51.1); % Neutrophils 76.7 % (42.2-75.2); Absolute Eosinophils 0.1 10^3/uL (0-0.7); Absolute Lymphocytes 0.6 10^3/uL (1.2-3.4); Absolute Monocytes 0.9 10^3/uL (0.1-0.6); Absolute Neutrophils 5.3 10^3/uL (1.4-6.5); Hematocrit 30.7 % (39.0-52.0); Hemoglobin 8.7 g/dL (13.0-18.0); Mean Corp Hgb Conc. 28.3 g/dL (33.0-37.0); Mean Corpuscular Hgb 23.3 pg (27.0-31.0); Mean Corpuscular Volume 82.3 fL (80.0-94.0); Mean Platelet Volume 10.7 fL (7.4-10.4); Nucleated Red Blood Cells % 0 % (-); Platelet Count 171 10^3/uL (130-400); Red Blood Cell Count 3.73 10^6/uL (4.70-6.10); Red Cell Dist. Width 18.2 % (11.5-14.5); White Blood Cell Count 6.9 10^3/uL (4.8-10.8)
[2024-12-31 15:04] LABS: Anisocytosis 1+; Hypochromasia 2+; Normal RBC Morphology No; Ovalocytes 1+; Polychromasia 1+
== END ==
LOC: RAD 11:56
PROVIDERS: ATTENDING PHYSICIAN Nurse Practitioner Family; FAMILY PHYSICIAN Internal Medicine Geriatric Medicine
DX: J06.9 Acute upper respiratory infection, unspecified (principal); R06.02 Shortness of breath
CPT/HCPCS: 36415; 71046; 80053; 83880; 85025

== ENCOUNTER → 2025-01-10 16:06 | Outpatient (REF) | payer MEDICARE, BC, SELFPAY ==
[2025-01-10 10:35] LABS: % Basophils 0.6 % (0-2); % Eosinophils 2.5 % (0-6); % Lymphocytes 8.4 % (20.5-51.1); % Monocytes 9.3 % (1.7-9.3); % Neutrophils 79.2 % (42.2-75.2); Absolute Eosinophils 0.1 10^3/uL (0-0.7); Absolute Lymphocytes 0.4 10^3/uL (1.2-3.4); Absolute Monocytes 0.4 10^3/uL (0.1-0.6); Absolute Neutrophils 3.8 10^3/uL (1.4-6.5); Hematocrit 30.5 % (39.0-52.0); Hemoglobin 8.8 g/dL (13.0-18.0); Mean Corp Hgb Conc. 28.9 g/dL (33.0-37.0); Mean Corpuscular Hgb 22.7 pg (27.0-31.0); Mean Corpuscular Volume 78.8 fL (80.0-94.0); Mean Platelet Volume 9.9 fL (7.4-10.4); Platelet Count 206 10^3/uL (130-400); Red Blood Cell Count 3.87 10^6/uL (4.70-6.10); Red Cell Dist. Width 17.8 % (11.5-14.5); White Blood Cell Count 4.8 10^3/uL (4.8-10.8)
== END ==
LOC: OIDL 16:06
PROVIDERS: ATTENDING PHYSICIAN Nurse Practitioner Primary Care
DX: D64.9 Anemia, unspecified (principal); E61.1 Iron deficiency; Z85.46 Personal history of malignant neoplasm of prostate
CPT/HCPCS: 85025

== ENCOUNTER → 2025-01-24 07:13 | Outpatient (REF) | payer MEDICARE, BC, SELFPAY ==
[2025-01-24 08:18] LABS: % Basophils 0.5 % (0-2); % Eosinophils 3.5 % (0-6); % Immature Granulocytes 0.5 % (0-0.5); % Monocytes 10.5 % (1.7-9.3); Absolute Eosinophils 0.1 10^3/uL (0-0.7); Absolute Lymphocytes 0.5 10^3/uL (1.2-3.4); Absolute Monocytes 0.4 10^3/uL (0.1-0.6); Absolute Neutrophils 2.9 10^3/uL (1.4-6.5); Hematocrit 33.6 % (39.0-52.0); Hemoglobin 9.4 g/dL (13.0-18.0); Mean Corpuscular Hgb 24.2 pg (27.0-31.0); Mean Corpuscular Volume 86.6 fL (80.0-94.0); Mean Platelet Volume 10.8 fL (7.4-10.4); Nucleated Red Blood Cells % 0 % (-); Platelet Count 153 10^3/uL (130-400); Red Blood Cell Count 3.88 10^6/uL (4.70-6.10); Red Cell Dist. Width 25.3 % (11.5-14.5)
[2025-01-24 08:37] LABS: Iron 63 ug/dl (49-181)
[2025-01-24 08:53] LABS: Percent Saturation 20 % (20-50); Total Iron Binding Capacity 313 ug/dl (261-462)
[2025-01-24 09:30] LABS: Ferritin 80.1 ng/ml (17.9-464.0)
== END ==
LOC: REG 07:13
PROVIDERS: ATTENDING PHYSICIAN Internal Medicine Hematology & Oncology; FAMILY PHYSICIAN Internal Medicine Geriatric Medicine
DX: D64.9 Anemia, unspecified (principal); E61.1 Iron deficiency; Z85.46 Personal history of malignant neoplasm of prostate; D50.9 Iron deficiency anemia, unspecified
CPT/HCPCS: 36415; 82728; 83540; 83550; 85025

== ENCOUNTER → 2025-02-11 07:45 | Outpatient (REF) | payer MEDICARE, BC, SELFPAY ==
[2025-02-11 09:11] LABS: % Basophils 0.5 % (0-2); % Eosinophils 2.6 % (0-6); % Immature Granulocytes 0.2 % (0-0.5); % Lymphocytes 12.4 % (20.5-51.1); % Monocytes 10.1 % (1.7-9.3); % Neutrophils 74.2 % (42.2-75.2); Absolute Eosinophils 0.1 10^3/uL (0-0.7); Absolute Lymphocytes 0.5 10^3/uL (1.2-3.4); Absolute Monocytes 0.4 10^3/uL (0.1-0.6); Absolute Neutrophils 3.2 10^3/uL (1.4-6.5); Hematocrit 32.7 % (39.0-52.0); Hemoglobin 9.7 g/dL (13.0-18.0); Mean Corp Hgb Conc. 29.7 g/dL (33.0-37.0); Mean Corpuscular Hgb 25.5 pg (27.0-31.0); Mean Corpuscular Volume 86.1 fL (80.0-94.0); Mean Platelet Volume 10.5 fL (7.4-10.4); Nucleated Red Blood Cells % 0 % (-); Platelet Count 142 10^3/uL (130-400); Red Cell Dist. Width 23.5 % (11.5-14.5); White Blood Cell Count 4.3 10^3/uL (4.8-10.8)
[2025-02-11 09:32] LABS: Iron 45 ug/dl (49-181)
[2025-02-11 09:41] LABS: Percent Saturation 13 % (20-50); Total Iron Binding Capacity 325 ug/dl (261-462)
[2025-02-11 10:07] LABS: Ferritin 18.4 ng/ml (17.9-464.0)
== END ==
LOC: REG 07:45
PROVIDERS: ATTENDING PHYSICIAN Internal Medicine Hematology & Oncology; FAMILY PHYSICIAN Internal Medicine Geriatric Medicine
DX: D64.9 Anemia, unspecified (principal); E61.1 Iron deficiency; Z85.46 Personal history of malignant neoplasm of prostate; D50.9 Iron deficiency anemia, unspecified
CPT/HCPCS: 36415; 82728; 83540; 83550; 85025

== ENCOUNTER → 2025-02-12 06:53 | Outpatient (REF) | payer MEDICARE, BC, SELFPAY ==
[2025-02-12 08:18] LABS: PSA, Total - Diagnostic < 0.06 ng/ml (0.0-4.0)
[2025-02-14 01:44] LABS: % Free Testosterone 1.6 % (1.6-2.9); Free Testosterone 2 pg/mL (47-244); Sex Hormone Binding Globulin 34 nmol/L (19-76); Total Testosterone 14 ng/dL (300-720)
== END ==
LOC: REG 06:53
PROVIDERS: ATTENDING PHYSICIAN Family Medicine Geriatric Medicine; FAMILY PHYSICIAN Internal Medicine Geriatric Medicine
DX: C61 Malignant neoplasm of prostate (principal); Z79.818 Long term (current) use of other agents affecting estrogen receptors and estrogen levels
CPT/HCPCS: 84153; 84270; 84402; 84403

== ENCOUNTER → 2025-02-14 13:19 | Outpatient (REF) | payer MEDICARE, BC, SELFPAY ==
[2025-02-14 13:30] LABS: % Basophils 0.2 % (0-2); % Eosinophils 3.1 % (0-6); % Immature Granulocytes 0.2 % (0-0.5); % Lymphocytes 9.8 % (20.5-51.1); % Monocytes 10.3 % (1.7-9.3); % Neutrophils 76.4 % (42.2-75.2); Absolute Eosinophils 0.1 10^3/uL (0-0.7); Absolute Lymphocytes 0.4 10^3/uL (1.2-3.4); Absolute Monocytes 0.5 10^3/uL (0.1-0.6); Absolute Neutrophils 3.4 10^3/uL (1.4-6.5); Hematocrit 33.8 % (39.0-52.0); Hemoglobin 10.1 g/dL (13.0-18.0); Mean Corp Hgb Conc. 29.9 g/dL (33.0-37.0); Mean Corpuscular Hgb 25.4 pg (27.0-31.0); Mean Corpuscular Volume 84.9 fL (80.0-94.0); Platelet Count 165 10^3/uL (130-400); Red Blood Cell Count 3.98 10^6/uL (4.70-6.10); Red Cell Dist. Width 22.9 % (11.5-14.5); White Blood Cell Count 4.5 10^3/uL (4.8-10.8)
== END ==
LOC: OIDL 13:19
PROVIDERS: ATTENDING PHYSICIAN Nurse Practitioner Primary Care
DX: D64.9 Anemia, unspecified (principal); Z85.46 Personal history of malignant neoplasm of prostate
CPT/HCPCS: 85025

== ENCOUNTER → 2025-03-10 14:02 | Outpatient (REF) | payer MEDICARE, BC, SELFPAY ==
[2025-03-10 12:51] LABS: % Basophils 0.4 % (0-2); % Eosinophils 2.6 % (0-6); % Immature Granulocytes 0.2 % (0-0.5); % Lymphocytes 10.1 % (20.5-51.1); % Neutrophils 74.7 % (42.2-75.2); Absolute Eosinophils 0.1 10^3/uL (0-0.7); Absolute Lymphocytes 0.5 10^3/uL (1.2-3.4); Absolute Monocytes 0.6 10^3/uL (0.1-0.6); Absolute Neutrophils 3.5 10^3/uL (1.4-6.5); Hematocrit 33.9 % (39.0-52.0); Hemoglobin 10.5 g/dL (13.0-18.0); Mean Corpuscular Volume 87.1 fL (80.0-94.0); Mean Platelet Volume 10.7 fL (7.4-10.4); Platelet Count 127 10^3/uL (130-400); Red Blood Cell Count 3.89 10^6/uL (4.70-6.10); Red Cell Dist. Width 21.9 % (11.5-14.5); White Blood Cell Count 4.7 10^3/uL (4.8-10.8)
== END ==
LOC: OIDL 14:02
PROVIDERS: ATTENDING PHYSICIAN Nurse Practitioner Primary Care
DX: D64.9 Anemia, unspecified (principal)
CPT/HCPCS: 85025

== ENCOUNTER → 2025-03-14 08:45 | Outpatient (REF) | payer MEDICARE, BC, SELFPAY ==
[2025-03-14 11:09] LABS: Hematocrit 33.6 % (39.0-52.0); Mean Corp Hgb Conc. 29.8 g/dL (33.0-37.0); Mean Corpuscular Hgb 26.7 pg (27.0-31.0); Mean Corpuscular Volume 89.8 fL (80.0-94.0); Mean Platelet Volume 11.1 fL (7.4-10.4); Platelet Count 124 10^3/uL (130-400); Red Blood Cell Count 3.74 10^6/uL (4.70-6.10); Red Cell Dist. Width 22.8 % (11.5-14.5); White Blood Cell Count 5.9 10^3/uL (4.8-10.8)
[2025-03-14 11:10] LABS: Iron 235 ug/dl (49-181)
[2025-03-14 11:19] LABS: Percent Saturation 88 % (20-50); Total Iron Binding Capacity 265 ug/dl (261-462)
== END ==
LOC: REG 08:45
PROVIDERS: ATTENDING PHYSICIAN Specialist; FAMILY PHYSICIAN Internal Medicine Geriatric Medicine
DX: R19.5 Other fecal abnormalities (principal); D51.9 Vitamin B12 deficiency anemia, unspecified
CPT/HCPCS: 36415; 82728; 83540; 83550; 85027

== ENCOUNTER → 2025-04-04 09:33 | Outpatient (REF) | payer MEDICARE, BC, SELFPAY ==
[2025-04-04 10:52] LABS: % Basophils 1.1 % (0-2); % Eosinophils 2.8 % (0-6); % Immature Granulocytes 0.3 % (0-0.5); % Lymphocytes 10.9 % (20.5-51.1); % Monocytes 11.5 % (1.7-9.3); % Neutrophils 73.4 % (42.2-75.2); Absolute Eosinophils 0.1 10^3/uL (0-0.7); Absolute Lymphocytes 0.4 10^3/uL (1.2-3.4); Absolute Monocytes 0.4 10^3/uL (0.1-0.6); Absolute Neutrophils 2.6 10^3/uL (1.4-6.5); Hematocrit 36.9 % (39.0-52.0); Hemoglobin 10.9 g/dL (13.0-18.0); Mean Corp Hgb Conc. 29.5 g/dL (33.0-37.0); Mean Corpuscular Hgb 27.2 pg (27.0-31.0); Mean Platelet Volume 10.4 fL (7.4-10.4); Nucleated Red Blood Cells % 0 % (-); Platelet Count 120 10^3/uL (130-400); Red Blood Cell Count 4.01 10^6/uL (4.70-6.10); Red Cell Dist. Width 20.1 % (11.5-14.5); White Blood Cell Count 3.6 10^3/uL (4.8-10.8)
[2025-04-04 11:21] LABS: Iron 44 ug/dl (49-181)
[2025-04-04 11:30] LABS: Percent Saturation 16 % (20-50); Total Iron Binding Capacity 267 ug/dl (261-462)
== END ==
LOC: REG 09:33
PROVIDERS: ATTENDING PHYSICIAN Specialist
DX: K92.1 Melena (principal)
CPT/HCPCS: 36415; 82728; 83540; 83550; 85025

== ENCOUNTER → 2025-04-07 11:15 | Outpatient (REF) | payer MEDICARE, BC, SELFPAY ==
[2025-04-07 11:26] LABS: % Basophils 0.4 % (0-2); % Eosinophils 1.9 % (0-6); % Immature Granulocytes 0.2 % (0-0.5); % Lymphocytes 7.1 % (20.5-51.1); % Monocytes 10.4 % (1.7-9.3); Absolute Eosinophils 0.1 10^3/uL (0-0.7); Absolute Lymphocytes 0.3 10^3/uL (1.2-3.4); Absolute Monocytes 0.5 10^3/uL (0.1-0.6); Absolute Neutrophils 3.7 10^3/uL (1.4-6.5); Hematocrit 34.8 % (39.0-52.0); Hemoglobin 10.4 g/dL (13.0-18.0); Mean Corp Hgb Conc. 29.9 g/dL (33.0-37.0); Mean Corpuscular Hgb 27.2 pg (27.0-31.0); Mean Corpuscular Volume 90.9 fL (80.0-94.0); Mean Platelet Volume 10.3 fL (7.4-10.4); Platelet Count 120 10^3/uL (130-400); Red Blood Cell Count 3.83 10^6/uL (4.70-6.10); Red Cell Dist. Width 19.5 % (11.5-14.5); White Blood Cell Count 4.6 10^3/uL (4.8-10.8)
== END ==
LOC: OIDL 11:15
PROVIDERS: ATTENDING PHYSICIAN Nurse Practitioner Primary Care
DX: D64.9 Anemia, unspecified (principal); E61.1 Iron deficiency; Z85.46 Personal history of malignant neoplasm of prostate; D50.9 Iron deficiency anemia, unspecified
CPT/HCPCS: 85025

== ENCOUNTER → 2025-04-18 07:14 | Outpatient (REF) | payer MEDICARE, BC, SELFPAY ==
[2025-04-18 08:24] LABS: Urine Albumin 2+ (Neg - Trace); Urine Bilirubin Negative (Negative); Urine Character Clear (Clear); Urine Color Yellow; Urine Glucose Negative (Negative); Urine Ketone Negative (Negative); Urine Leukocyte Negative (Negative); Urine Nitrite Negative (Negative); Urine Occult Blood Negative (Negative); Urine Urobilinogen Negative (Neg - 1+)
[2025-04-18 08:35] LABS: Erythrocyte Sed Rate 21 mm/hour (0-20)
[2025-04-18 08:48] LABS: % Basophils 0.8 % (0-2); % Eosinophils 3.1 % (0-6); % Immature Granulocytes 0.5 % (0-0.5); % Lymphocytes 13.2 % (20.5-51.1); % Monocytes 10.2 % (1.7-9.3); % Neutrophils 72.2 % (42.2-75.2); Absolute Eosinophils 0.1 10^3/uL (0-0.7); Absolute Lymphocytes 0.5 10^3/uL (1.2-3.4); Absolute Monocytes 0.4 10^3/uL (0.1-0.6); Absolute Neutrophils 2.8 10^3/uL (1.4-6.5); Hematocrit 37.5 % (39.0-52.0); Hemoglobin 11.2 g/dL (13.0-18.0); Mean Corp Hgb Conc. 29.9 g/dL (33.0-37.0); Mean Corpuscular Hgb 27.5 pg (27.0-31.0); Mean Corpuscular Volume 91.9 fL (80.0-94.0); Mean Platelet Volume 10.8 fL (7.4-10.4); Nucleated Red Blood Cells % 0 % (-); Platelet Count 127 10^3/uL (130-400); Red Blood Cell Count 4.08 10^6/uL (4.70-6.10); Red Cell Dist. Width 18.9 % (11.5-14.5); White Blood Cell Count 3.9 10^3/uL (4.8-10.8)
[2025-04-18 09:14] LABS: Urine Mucus Many
[2025-04-18 09:18] LABS: Urine Amorphous Seen; Urine Red Blood Cell 0-2 /HPF (0-2); Urine White Cell 0-2 /HPF (0-5)
[2025-04-18 09:19] LABS: Urine Bacteria Few (Negative)
[2025-04-18 09:33] LABS: C-Reactive Protein < 5.00 mg/L (0.0-10.00)
[2025-04-18 09:37] LABS: ALT (SGPT) 21 U/L (0-50); AST (SGOT) 25 U/L (17-59); Albumin 4.4 g/dl (3.5-5.0); Alkaline Phosphatase 87 U/L (38-126); Blood Urea Nitrogen 16 mg/dl (9-20); Calcium 9.4 mg/dl (8.4-10.2); Carbon Dioxide 32 mmol/L (22-30); Chloride 107 mmol/L (98-107); Glucose 109 mg/dl (70-99); HDL Cholesterol 40 mg/dl; Iron 61 ug/dl (49-181); LDL Cholesterol, Calculated 38 mg/dl; Potassium 3.9 mmol/L (3.5-5.1); Sodium 144 mmol/L (135-145); Total Bilirubin 0.7 mg/dl (0.2-1.3); Total Cholesterol 92 mg/dl (50-199); Total Protein 7.1 g/dl (6.3-8.2); Triglyceride 71 mg/dl (10-149); Very Low Density Lipoprotein 14 mg/dl (0-30); eGFR > 60.00
[2025-04-18 09:47] LABS: Percent Saturation 23 % (20-50); Total Iron Binding Capacity 257 ug/dl (261-462)
[2025-04-18 09:50] LABS: Vitamin D, 25-OH*** 66.4 ng/mL (30-80)
[2025-04-18 10:04] LABS: TSH 1.61 uIU/ml (0.47-4.68)
[2025-04-19 21:19] LABS: Thyroglobulin Antibodies <1.5 IU/mL (0.0-4.0); Thyroid Peroxidase Ab (TPO) 25.8 IU/mL (0.0-9.0)
== END ==
LOC: REG 07:14
PROVIDERS: ATTENDING PHYSICIAN Internal Medicine Geriatric Medicine
DX: C61 Malignant neoplasm of prostate (principal); R26.2 Difficulty in walking, not elsewhere classified; I42.9 Cardiomyopathy, unspecified; I10 Essential (primary) hypertension; E61.1 Iron deficiency
CPT/HCPCS: 36415; 80053; 80061; 81003; 81015; 82306; 83540; 83550; 84443; 85025; 85652; 86140; 86376; 86800

== ENCOUNTER → 2025-05-03 07:09 | Outpatient (REF) | payer MEDICARE, BC, SELFPAY ==
[2025-05-03 07:43] LABS: % Basophils 0.5 % (0-2); % Eosinophils 3.4 % (0-6); % Immature Granulocytes 0.2 % (0-0.5); % Lymphocytes 9.3 % (20.5-51.1); % Neutrophils 74.6 % (42.2-75.2); Absolute Eosinophils 0.1 10^3/uL (0-0.7); Absolute Lymphocytes 0.4 10^3/uL (1.2-3.4); Absolute Monocytes 0.5 10^3/uL (0.1-0.6); Absolute Neutrophils 3.1 10^3/uL (1.4-6.5); Hematocrit 34.4 % (39.0-52.0); Hemoglobin 10.8 g/dL (13.0-18.0); Mean Corp Hgb Conc. 31.4 g/dL (33.0-37.0); Mean Corpuscular Hgb 27.9 pg (27.0-31.0); Mean Corpuscular Volume 88.9 fL (80.0-94.0); Nucleated Red Blood Cells % 1.5 % (-); Red Blood Cell Count 3.87 10^6/uL (4.70-6.10); Red Cell Dist. Width 18.5 % (11.5-14.5); White Blood Cell Count 4.1 10^3/uL (4.8-10.8)
[2025-05-03 07:56] LABS: Blood Urea Nitrogen 15 mg/dl (9-20); Calcium 9.2 mg/dl (8.4-10.2); Carbon Dioxide 30 mmol/L (22-30); Chloride 107 mmol/L (98-107); Glucose 130 mg/dl (70-99); Iron 54 ug/dl (49-181); Sodium 144 mmol/L (135-145); eGFR > 60.00
[2025-05-03 08:05] LABS: Percent Saturation 21 % (20-50); Total Iron Binding Capacity 253 ug/dl (261-462)
[2025-05-03 08:24] LABS: Mean Platelet Volume 10.8 fL (7.4-10.4); Platelet Count 100 10^3/uL (130-400)
== END ==
LOC: REG 07:09
PROVIDERS: ATTENDING PHYSICIAN Nurse Practitioner Adult Health; FAMILY PHYSICIAN Internal Medicine Geriatric Medicine; OTHER PHYSICIAN Internal Medicine Hematology & Oncology; OTHER PHYSICIAN Specialist
DX: I10 Essential (primary) hypertension (principal); D64.9 Anemia, unspecified; E61.1 Iron deficiency; Z85.46 Personal history of malignant neoplasm of prostate; D50.9 Iron deficiency anemia, unspecified
CPT/HCPCS: 36415; 80048; 82728; 83540; 83550; 85025

== ENCOUNTER 2025-06-04 07:23 | Inpatient (IN) | payer MEDICARE, BC, SELFPAY ==
[2025-02-17 13:40] VITALS: BMI 36.3
[2025-02-17 14:18] LABS: Hematocrit 35.1 % (39.0-52.0); Hemoglobin 10.5 g/dL (13.0-18.0); Mean Corp Hgb Conc. 29.9 g/dL (33.0-37.0); Mean Corpuscular Volume 85.2 fL (80.0-94.0); Platelet Count 167 10^3/uL (130-400); Red Cell Dist. Width 23.5 % (11.5-14.5)
[2025-02-17 14:41] LABS: ALT (SGPT) 17 U/L (0-50); AST (SGOT) 23 U/L (17-59); Albumin 4.5 g/dl (3.5-5.0); Alkaline Phosphatase 86 U/L (38-126); Blood Urea Nitrogen 18 mg/dl (9-20); Calcium 9.4 mg/dl (8.4-10.2); Carbon Dioxide 28 mmol/L (22-30); Chloride 105 mmol/L (98-107); Estimated Creatinine Clearance 74 ml/min; Glucose 106 mg/dl (70-99); Potassium 3.9 mmol/L (3.5-5.1); Sodium 146 mmol/L (135-145); Total Protein 7.0 g/dl (6.3-8.2); eGFR > 60.00
[2025-02-17 15:04] LABS: Glycohemoglobin (HgbA1c) 5.2 % (4.0-5.6)
--- NOTE | 2025-02-18 12:12 | CM ---
CM reviewed medical records. CM spoke with patient's daughter who stated that she believes that he will need SNF on discharge. Daughter asserts that patient's is deblitated and will not be able to provide care for patient. CM advised that
patient will need to be in the hospital for three day as an inpatient and will also have a PT evaluation to confirm needs for placement. Patient has not had a history of VN, SNF or DME. Patient is active with his specialists and PCP. Patient has
medication coverage.
CM advised patient's daughter to research SNF facilities on Medicare.gov. CM will await daughters choices. CM reinforced that preferred SNF's may not be available at the time of discharge and CM encouraged multiple choices.
Daughter has this CM's contact information.
CM will remain available as needed.
PLAN: SNF pending surgical outcome and PT evaluations.
[2025-02-26 08:47] VITALS: BMI 36.3
[2025-05-20 11:30] LABS: Hematocrit 34.4 % (39.0-52.0); Hemoglobin 10.4 g/dL (13.0-18.0); Mean Corp Hgb Conc. 30.2 g/dL (33.0-37.0); Mean Corpuscular Volume 94.0 fL (80.0-94.0); Platelet Count 127 10^3/uL (130-400); Red Cell Dist. Width 18.9 % (11.5-14.5)
[2025-05-20 12:17] LABS: Glycohemoglobin (HgbA1c) 5.2 % (4.0-5.6)
[2025-05-20 12:25] LABS: ALT (SGPT) 21 U/L (0-50); AST (SGOT) 22 U/L (17-59); Albumin 4.3 g/dl (3.5-5.0); Alkaline Phosphatase 93 U/L (38-126); Blood Urea Nitrogen 17 mg/dl (9-20); Calcium 8.9 mg/dl (8.4-10.2); Carbon Dioxide 30 mmol/L (22-30); Chloride 108 mmol/L (98-107); Estimated Creatinine Clearance 82 ml/min; Glucose 104 mg/dl (70-99); Potassium 3.8 mmol/L (3.5-5.1); Sodium 143 mmol/L (135-145); Total Protein 6.8 g/dl (6.3-8.2); eGFR > 60.00
[2025-05-20 14:06] VITALS: BMI 35.7
[2025-05-20 14:32] VITALS: BMI 35.7
[2025-06-04] VITALS (18 sets, daily range): BP systolic 102–148; BP diastolic 53–82; PULSE 65–84; O2SAT 96–100; BMI 35.7; BMI 34.6
[2025-06-04] MEDS: TYLENOL 650 MG PO (07:52)
[2025-06-04] MEDS: CELEBREX 200 MG PO (07:53)
[2025-06-04] MEDS: NORMOSOL-R/PLASMALYTE-A 1000 IV (07:53)
--- NOTE | 2025-06-04 10:13 | W.PN.UPDATE ---
Update Note
Progress Note Update
R knee OA s/p R TKA w/ Dr Copeland 06/04/25
DVT prophylaxis - Eliquis at modified dosing, b/l venous foot pumps
- Eliquis 5 mg PO BID to be resumed POD 3 if hemodynamically stable
HTN - + parameters - monitor BP
Dilated aortic root and potential for orthostasis - monitor serial orthostatic VS
- IVF running
- Midodrine w/ SBP parameters
CAD, 40% mid LAD and 30% mid OM 3, medically treated
Permanent atrial fibrillation
- Monitor on tele
- Continue Atenolol
- Eliquis as stated above
CHFpEF
Pulmonary hypertension, PASP 58 mm Hg, by echo 07/2024
- Reduce hourly IVF rate to prevent fluid overload
- Resume diuretic therapy but w/ SBP parameters to minimize post-surgical hypotension
- Low sodium diet
- Monitor daily weight, I&Os
Restrictive lung disease.
Central and obstructive sleep apnea, BiPAP compliant
- Monitor O2
- IS
- Standing order Duonebs
- Decadron to assist with breathing
- Continue BiPAP HS
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
- NO NSAIDS
Hepatic cirrhosis noted on imaging - reduce hepatotoxins such as Tylenol
Mild cognitive deficits at baseline - continue Donepezil
- Minimize opioids as able
Ambulatory dysfunction - on fall precautions
Iron deficiency anemia s/p IV iron w/ heme pre-op and chronic thrombocytopenia - CBC in AM
Obesity, BMI 35.7 - due to elevated BMI, would benefit from Cefadroxil upon d/c
HLD
Chronic peripheral edema
Venous insufficiency
H/o TIA
DISH
Vertebral L2 fracture, chronic
Spinal stenosis
Prostate cancer, greater than 5 years, s/p radiation and hormone therapy
Anxiety
Depression
History of tobacco abuse
Given current functional status, may benefit from a SNF upon d/c
--- NOTE | 2025-06-04 10:41 | CM ---
Addendum entered by Tigist Herrera RN 06/05/25 09:29:
CM updated referral with PT/OT notes.
Addendum entered by Tigist Herrera RN 06/05/25 08:49:
Cm spoke with daughter at bedside. Daughter expressed preference for [facility]. [facility] accepted. CM updated Kathie with daughter's preference.
PLAN: Monday, [facility].
Original Note:
Cm spoke with patient's daughter who provided SNF preferences. CM sent preliminary referrals via [facility] to [facility], [facility], and [facility].
PLAN: SNF, pending PT evaluation.
--- NOTE | 2025-06-04 12:15 | PTCARENOTE ---
During admission, Fall documentation erroneously checked 'yes, during this visit' instead of within last 3 months.
[2025-06-04] MEDS: DUONEB INH ×2 (13:13→20:34)
[2025-06-04] MEDS: NSS 1000 IV (14:21)
[2025-06-04] MEDS: LASIX 40 MG PO (14:38)
[2025-06-04] MEDS: KCL 20 MEQ PO (14:38)
[2025-06-04] MEDS: LIDOCAINE 4% PATCH 2 PATCH TOPICAL (14:39)
[2025-06-04] MEDS: VITAMIN D3 (cholecalciferol) 25 MCG PO (14:39)
[2025-06-04] MEDS: PROTONIX 20 MG PO (14:39)
[2025-06-04] MEDS: ROXICODONE 5 MG PO ×2 (15:11→19:14)
[2025-06-04] MEDS: DUONEB 3 ML INH (15:55)
[2025-06-04] MEDS: ANCEF 5 IV ×2 (16:48→23:40)
[2025-06-04] MEDS: LIPITOR 40 MG PO (19:09)
[2025-06-04] MEDS: KCL PO (20:21)
[2025-06-04] MEDS: BACTROBAN 2% OINTMENT 1 APPLIC NASAL (20:29)
[2025-06-04] MEDS: COLACE 100 MG PO (20:29)
[2025-06-04] MEDS: ELIQUIS 2.5 MG PO (20:29)
[2025-06-04] MEDS: DECADRON 4 MG PO (20:29)
[2025-06-04] MEDS: LASIX PO (20:30)
[2025-06-04] MEDS: SENOKOT 17.2 MG PO (20:30)
[2025-06-04] MEDS: REMOVE LIDOCAINE PATCH 2 PATCH REMOVE (20:34)
[2025-06-04] MEDS: ARICEPT PO (21:46)
[2025-06-04] MEDS: ULTRAM 50 MG PO (21:48)
[2025-06-04] MEDS: DESYREL 50 MG PO (21:48)
[2025-06-05] VITALS (10 sets, daily range): BP systolic 92–156; BP diastolic 58–86; PULSE 74–88; O2SAT 92; BMI 35.1
[2025-06-05] MEDS: ROXICODONE 5 MG PO (04:26)
[2025-06-05 06:46] LABS: Hematocrit 31.6 % (39.0-52.0); Hemoglobin 9.7 g/dL (13.0-18.0); Mean Corp Hgb Conc. 30.7 g/dL (33.0-37.0); Mean Corpuscular Volume 92.1 fL (80.0-94.0); Platelet Count 126 10^3/uL (130-400); Red Cell Dist. Width 17.6 % (11.5-14.5)
[2025-06-05] MEDS: DUONEB INH ×3 (08:37→20:04)
[2025-06-05] MEDS: SENOKOT 17.2 MG PO ×2 (09:09→20:28)
[2025-06-05] MEDS: ULTRAM 50 MG PO ×2 (09:09→15:02)
[2025-06-05] MEDS: DECADRON 4 MG PO ×2 (09:10→20:28)
[2025-06-05] MEDS: COLACE 100 MG PO ×2 (09:10→20:28)
[2025-06-05] MEDS: PROTONIX 20 MG PO (09:10)
[2025-06-05] MEDS: LASIX 40 MG PO ×2 (09:10→20:28)
[2025-06-05] MEDS: INSPRA 25 MG PO (09:11)
[2025-06-05] MEDS: LEXAPRO 20 MG PO (09:11)
[2025-06-05] MEDS: VITAMIN D3 (cholecalciferol) 25 MCG PO (09:11)
[2025-06-05] MEDS: KCL 20 MEQ PO ×2 (09:12→20:27)
[2025-06-05] MEDS: TENORMIN 50 MG PO (09:12)
[2025-06-05] MEDS: ELIQUIS 2.5 MG PO ×2 (09:12→20:28)
[2025-06-05] MEDS: LIDOCAINE 4% PATCH 2 PATCH TOPICAL (09:13)
[2025-06-05] MEDS: BACTROBAN 2% OINTMENT 1 APPLIC NASAL ×2 (09:18→20:27)
--- NOTE | 2025-06-05 09:41 | W.PN.ORTHO ---
Today's Communication / Plan
-
Continue to monitor CBC, orthostatic VS, rhythm on tele.
Continue to work w/ PT and OT as able.
D/c when clinically stable. D/c likely will be to SNF.
Assessment
.
Distal Motor Intact: Yes
Dressing:
Clean, dry and intact.
Assessment:
R knee OA s/p R TKA w/ Dr Copeland 06/04/25
DVT prophylaxis - Eliquis at modified dosing, b/l venous foot pumps
- Eliquis 5 mg PO BID to be resumed POD 3 if hemodynamically stable
HTN - + parameters - monitor BP
Dilated aortic root and potential for orthostasis - monitor serial orthostatic VS
- s/p gentle IVF
- Midodrine w/ SBP parameters
CAD, 40% mid LAD and 30% mid OM 3, medically treated
Permanent atrial fibrillation
- Monitor on tele
- Continue Atenolol
- Eliquis as stated above
CHFpEF
Pulmonary hypertension, PASP 58 mm Hg, by echo 07/2024
- S/p gentle IVF to prevent fluid overload
- Resumed diuretic therapy but w/ SBP parameters to minimize post-surgical hypotension
- Low sodium diet. Consider fluid restriction
- Monitor daily weight, I&Os
Restrictive lung disease
Central and obstructive sleep apnea, BiPAP compliant
- Monitor O2
- IS
- Standing order Duonebs
- Decadron to assist with breathing
- Continue BiPAP HS
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
- NO NSAIDS
Hepatic cirrhosis noted on imaging - minimize hepatotoxins such as Tylenol
Mild cognitive deficits at baseline - continue Donepezil
- Minimize opioids as able
Ambulatory dysfunction - on fall precautions
Iron deficiency anemia s/p IV iron w/ heme pre-op and chronic thrombocytopenia - Hgb 10.4 pre-op -> 9.7 post-op
- Continue to monitor hgb while inpatient
Obesity, BMI 35.7 - due to elevated BMI, would benefit from Cefadroxil upon d/c
HLD
Chronic peripheral edema
Venous insufficiency
H/o TIA
DISH
Vertebral L2 fracture, chronic
Spinal stenosis
Prostate cancer, greater than 5 years, s/p radiation and hormone therapy
Anxiety
Depression
History of tobacco abuse
Given current functional status, may benefit from a SNF upon d/c
Plan
.
Surgery / Date: R TKA w/ Dr Copeland 06/04/25
DVT Prophylaxis: Other (Eliquis )
Activity:
Out of bed.
PT/OT
Discharge Plan: SNF
Subjective
.
.:
Patient resting comfortably in bed.
R knee pain tolerated as of this morning w/ current pain meds.
Denies any acute complaints.
D/c destination likely SNF per PT/OT recs.
Vital Signs and Labs
.
Vital Signs and Labs:
Lab Results
06/05/25 05:53
05/20/25 11:08
Temp Pulse Resp BP Pulse Ox
98.5 F 84 18 134/65 92
06/05/25 07:25 06/05/25 07:25 06/05/25 07:25 06/05/25 07:25 06/05/25 07:25
Non-invasive Hgb result: 10.7
Physical Exam
-
HEENT: No pallor, cyanosis, or jaundice. Throat clear.
NECK: Supple. No JVD.
RESPIRATORY: Lungs clear to auscultation.
CVS: Irregular irregular (rate controlled).
ABDOMEN: Soft, non-tender. No distension. Obese.
EXTREMITIES: Expected post-surgical R knee edema. Strength equal, no calf pain with palpation/dorsiflexion. Calves soft.
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 Mild cognitive deficits at baseline.. leader tier grossly intact
[2025-06-05] MEDS: KEFLEX 500 MG PO ×2 (10:54→22:23)
[2025-06-05] MEDS: FLORASTOR 250 MG PO ×2 (10:54→20:28)
[2025-06-05] MEDS: LIPITOR 40 MG PO (16:34)
[2025-06-05] MEDS: REMOVE LIDOCAINE PATCH 2 PATCH REMOVE (20:29)
[2025-06-05] MEDS: NEURONTIN 300 MG PO (22:23)
[2025-06-05] MEDS: ARICEPT 10 MG PO (22:23)
[2025-06-06] VITALS (10 sets, daily range): BP systolic 123–156; BP diastolic 64–92; PULSE 2–88; BMI 34.8
[2025-06-06 06:51] LABS: Hematocrit 33.2 % (39.0-52.0); Hemoglobin 10.3 g/dL (13.0-18.0); Mean Corp Hgb Conc. 31.0 g/dL (33.0-37.0); Mean Corpuscular Volume 89.5 fL (80.0-94.0); Platelet Count 129 10^3/uL (130-400); Red Cell Dist. Width 18.2 % (11.5-14.5)
[2025-06-06] MEDS: DUONEB 3 ML INH ×2 (07:54→18:21)
[2025-06-06] MEDS: COLACE 100 MG PO (08:02)
[2025-06-06] MEDS: LASIX 40 MG PO ×2 (08:02→20:45)
[2025-06-06] MEDS: DECADRON 4 MG PO ×2 (08:02→20:23)
[2025-06-06] MEDS: KCL 20 MEQ PO ×2 (08:02→20:45)
[2025-06-06] MEDS: ELIQUIS 2.5 MG PO ×2 (08:03→20:23)
[2025-06-06] MEDS: INSPRA 25 MG PO (08:03)
[2025-06-06] MEDS: FLORASTOR 250 MG PO ×2 (08:03→20:43)
[2025-06-06] MEDS: TENORMIN 50 MG PO (08:04)
[2025-06-06] MEDS: LEXAPRO 20 MG PO (08:04)
[2025-06-06] MEDS: PROTONIX 20 MG PO (08:04)
[2025-06-06] MEDS: SENOKOT 17.2 MG PO (08:04)
[2025-06-06] MEDS: LIDOCAINE 4% PATCH 2 PATCH TOPICAL (08:05)
[2025-06-06] MEDS: VITAMIN D3 (cholecalciferol) 25 MCG PO (08:05)
[2025-06-06] MEDS: ULTRAM 50 MG PO ×3 (08:17→20:23)
--- NOTE | 2025-06-06 08:42 | W.PN.ORTHO ---
Today's Communication / Plan
-
Continue to monitor hgb, daily weight/I&Os, orthostatic VS.
Work with PT and OT as able.
Monitor pain and adjust pain meds as needed. Meds somewhat limited d/t medical history.
D/c when clinically stable.
Assessment
.
Distal Motor Intact: Yes
Dressing:
Clean, dry and intact.
Assessment:
R knee OA s/p R TKA w/ Dr Copeland 06/04/25
DVT prophylaxis - Eliquis at modified dosing, b/l venous foot pumps
- Eliquis 5 mg PO BID to be resumed POD 3 since hemodynamically stable
HTN - + parameters - monitor BP
Dilated aortic root and potential for orthostasis - monitor serial orthostatic VS
- s/p gentle IVF
- Midodrine w/ SBP parameters
CAD, 40% mid LAD and 30% mid OM 3, medically treated
Permanent atrial fibrillation
- Monitor on tele
- Continue Atenolol
- Eliquis as stated above
CHFpEF
Pulmonary hypertension, PASP 58 mm Hg, by echo 07/2024
- S/p gentle IVF to prevent fluid overload
- Resumed diuretic therapy but w/ SBP parameters to minimize post-surgical hypotension
- Low sodium diet. Consider fluid restriction
- Continue to monitor daily weight, I&Os
Restrictive lung disease
Central and obstructive sleep apnea, BiPAP compliant
- Monitor O2
- IS
- Standing order Duonebs
- Decadron to assist with breathing
- Continue BiPAP HS
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
- NO NSAIDS
Hepatic cirrhosis noted on imaging - minimize hepatotoxins such as Tylenol
Mild cognitive deficits at baseline - continue Donepezil
- Minimize opioids as able
Ambulatory dysfunction - on fall precautions
Iron deficiency anemia s/p IV iron w/ heme pre-op and chronic thrombocytopenia - Hgb 10.4 pre-op -> 9.7 to 10.3 today
- Continue to monitor hgb while inpatient
Mild leukocytosis - likely reactive from surgery, Decadron - pt asymptomatic
Obesity, BMI 35.7 - due to elevated BMI, would benefit from Cefadroxil upon d/c
HLD
Chronic peripheral edema
Venous insufficiency
H/o TIA
DISH
Vertebral L2 fracture, chronic
Spinal stenosis
Prostate cancer, greater than 5 years, s/p radiation and hormone therapy
Chronic urinary incontinence 2* diuretic therapy
Anxiety
Depression
History of tobacco abuse
Given current functional status, would benefit from a SNF upon d/c. We are currently looking at beds at [facility].
Plan
.
Surgery / Date: R TKA w/ Dr Copeland 06/04/25
DVT Prophylaxis: Other (Eliquis )
Activity:
Out of bed.
PT/OT
Discharge Plan: SNF
Subjective
.
.:
Patient examined resting in bed.
Does report R knee pain this AM; however, is due for Tramadol vs Oxycodone.
Denies any new significant complaints.
AM labs stable.
Vital Signs and Labs
.
Vital Signs and Labs:
Lab Results
06/06/25 06:08
05/20/25 11:08
Temp Pulse Resp BP Pulse Ox
98.2 F 85 16 139/72 95
06/06/25 07:50 06/06/25 07:57 06/06/25 07:57 06/06/25 07:50 06/06/25 07:57
Non-invasive Hgb result: 10.7
Physical Exam
-
HEENT: No pallor, cyanosis, or jaundice. Throat clear.
NECK: Supple. No JVD.
RESPIRATORY: Lungs clear to auscultation.
CVS: Irregular irregular (rate controlled).
ABDOMEN: Soft, non-tender. No distension. Obese.
EXTREMITIES: Expected post-surgical R knee edema. Strength equal, no calf pain with palpation/dorsiflexion. Calves soft.
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 Mild cognitive deficits at baseline.. 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
--- NOTE | 2025-06-06 09:26 | CM ---
[facility] patient for 06/07 discharge.
PLAN:
[facility]
Report
[phone]

Patient and daughter are in agreement with discharge plan. CM updated ortho FERNANDO.
[2025-06-06] MEDS: KEFLEX 500 MG PO ×2 (09:45→22:45)
[2025-06-06] MEDS: LIPITOR 40 MG PO (17:47)
[2025-06-06] MEDS: COLACE PO (20:31)
[2025-06-06] MEDS: SENOKOT PO (20:31)
[2025-06-06] MEDS: REMOVE LIDOCAINE PATCH 2 PATCH REMOVE (20:46)
[2025-06-06] MEDS: NEURONTIN 300 MG PO (22:44)
[2025-06-06] MEDS: ARICEPT 10 MG PO (22:45)
[2025-06-07 03:51] VITALS: BP 140/91
[2025-06-07 04:44] VITALS: PULSE 2
[2025-06-07 06:49] LABS: Hematocrit 30.8 % (39.0-52.0); Hemoglobin 9.5 g/dL (13.0-18.0); Mean Corp Hgb Conc. 30.8 g/dL (33.0-37.0); Mean Corpuscular Volume 90.6 fL (80.0-94.0); Platelet Count 113 10^3/uL (130-400); Red Cell Dist. Width 18.0 % (11.5-14.5)
[2025-06-07 07:06] VITALS: BMI 34.1
[2025-06-07 07:30] VITALS: BP 120/77; BP 144/77; BP 147/82; PULSE 77; PULSE 78; PULSE 98
[2025-06-07] MEDS: DUONEB 3 ML INH (07:58)
[2025-06-07] MEDS: LASIX 40 MG PO (08:21)
[2025-06-07] MEDS: KCL 20 MEQ PO (08:21)
[2025-06-07] MEDS: LEXAPRO 20 MG PO (08:22)
[2025-06-07] MEDS: FLORASTOR 250 MG PO (08:22)
[2025-06-07] MEDS: VITAMIN D3 (cholecalciferol) 25 MCG PO (08:22)
[2025-06-07] MEDS: INSPRA 25 MG PO (08:22)
[2025-06-07] MEDS: PROTONIX 20 MG PO (08:22)
[2025-06-07] MEDS: ELIQUIS 5 MG PO (08:23)
[2025-06-07] MEDS: SENOKOT PO (08:23)
[2025-06-07] MEDS: TENORMIN 50 MG PO (08:23)
[2025-06-07] MEDS: COLACE PO (08:23)
[2025-06-07] MEDS: DECADRON 4 MG PO (08:23)
[2025-06-07] MEDS: LIDOCAINE 4% PATCH 2 PATCH TOPICAL (08:24)
--- NOTE | 2025-06-07 08:38 | W.PN.UPDATE ---
Update Note
Progress Note Update
Mr. Armstrong is POD3 following his right total knee arthroplasty performed by Dr. Copeland. He is resting comfortably in bed this morning, and reports he is doing well overall. He endorses aching pain in the knee, but states this is controlled with
his current pain management regimen. Plan is for sc to [place] [facility] today with outpatient follow up at 2 weeks post-op.
Directed exam of the right lower extremity reveals surgical dressing clean, dry and intact. ROM 0-60, limited secondary to patient discomfort. Calf soft and nontender. Neurovascularly intact distally.
Hgb 9.5 this AM.
--- NOTE | 2025-06-07 08:41 | W.DS.TRANS ---
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
-
Discharge Instructions:
Discharge Diagnosis/Procedures R knee OA s/p R TKA w/ Dr Copeland 06/04/25
Diet Low Sodium,Other diet
Additional Diets Diabetic carb controlled x1 week for wound
healing/infection prevention.
Adequate hydration, minimize opioids, and wear
TEDs stockings to prevent low blood pressure/
dizziness.
Activity As tolerated,With Walker
Driving Restrictions Not until seen by your Dr
Bathing Restrictions OK to Shower
Other Services PT,OT
Wound Care Dressing to be removed 1 week post-surgery.
Specialty Instructions Weigh Daily
Instructions:
Stand-Alone Forms: Total Hip/Knee Replacement D/C
Changes to Home Medications: No
Discharge Medications:
DC Medications w/original date entered in [employer]
atenolol 25 mg tablet 50 mg PO DAILY 04/26/22
atorvastatin 40 mg tablet 40 mg PO QPM #90 tabs 04/26/22
escitalopram oxalate 10 mg tablet 20 mg PO DAILY 04/26/22
nitroglycerin 0.4 mg sublingual tablet 0.4 mg sublingual [id number] PRN chest pain #25 tabs 04/26/22
omeprazole 20 mg capsule,delayed release 20 mg PO DAILY 04/26/22
potassium chloride 10 mEq tablet,extended release(part/cryst) 20 meq PO BID 04/26/22
multivitamin 1 tab PO DAILY 01/01/24
cholecalciferol (vitamin D3) 25 mcg (1,000 unit) tablet (Vitamin D3) 25 mcg PO DAILY 02/28/24
mupirocin 2 % topical ointment 1 applic topical BID infection prevention #1 tube 02/17/25
albuterol sulfate 90 mcg/actuation aerosol inhaler 2 inh inhalation Q4 PRN wheeze 05/19/25
trazodone 50 mg tablet 50 mg PO HS PRN sleep 05/19/25
Saccharomyces boulardii 250 mg capsule 250 mg PO BID #10 caps 06/05/25
apixaban 5 mg tablet (Eliquis) 5 mg PO BID #1 tab 06/05/25
cefadroxil 500 mg capsule 500 mg PO BID #10 caps 06/05/25
docusate sodium 100 mg capsule 100 mg PO BID #30 caps 06/05/25
donepezil 10 mg tablet 10 mg PO HS #1 tab 06/05/25
eplerenone 25 mg tablet 25 mg PO DAILY #1 tab 06/05/25
furosemide 40 mg tablet 40 mg PO BID #1 tab 06/05/25
lidocaine 4 % topical patch 2 patch topical DAILY #30 ea 06/05/25
prochlorperazine maleate 5 mg tablet 5 mg PO Q8H PRN nausea and vomiting #30 tabs 06/05/25
sennosides 8.6 mg tablet (Mendy-gabriele) 17.2 mg (2 x 8.6 mg) PO BID #30 tabs 06/05/25
acetaminophen 500 mg tablet (Tylenol Extra Strength) 500 mg PO Q8H PRN breakthrough pain #20 tabs 06/06/25
gabapentin 300 mg capsule 300 mg PO HS neuropathic pain/sleep #10 caps 06/06/25
tramadol 50 mg tablet 50 - 100 mg (1 - 2 x 50 mg) PO Q6H PRN moderate-severe pain #15 tabs 06/06/25
Home Medication Changes
Pending Results: No
[2025-06-07] MEDS: ULTRAM 50 MG PO (11:06)
[2025-06-07] MEDS: KEFLEX 500 MG PO (11:06)
[2025-06-07 11:20] VITALS: BP 147/69
== END 2025-06-07 15:14 | DRG 470 ==
LOC: 2 SOUTH 07:23
PROVIDERS: Physician Assistant; ADMITTING PHYSICIAN Orthopaedic Surgery; FAMILY PHYSICIAN Internal Medicine Geriatric Medicine; REFERRING PHYSICIAN Internal Medicine Cardiovascular Disease
PROC: 0SRC0J9 Replacement of Right Knee Joint with Synthetic Substitute, Cemented, Open Approach (ICD-10-PCS; 2025-06-05)
DX: M17.11 Unilateral primary osteoarthritis, right knee (principal); I48.21 Permanent atrial fibrillation; M84.48XA Pathological fracture, other site, initial encounter for fracture; Z68.36 Body mass index [BMI] 36.0-36.9, adult; E66.01 Morbid (severe) obesity due to excess calories; I10 Essential (primary) hypertension; E78.5 Hyperlipidemia, unspecified; I27.20 Pulmonary hypertension, unspecified; Z79.01 Long term (current) use of anticoagulants; I77.810 Thoracic aortic ectasia; I25.10 Atherosclerotic heart disease of native coronary artery without angina pectoris; D50.9 Iron deficiency anemia, unspecified; K21.9 Gastro-esophageal reflux disease without esophagitis; Z87.891 Personal history of nicotine dependence; G47.31 Primary central sleep apnea; G47.33 Obstructive sleep apnea (adult) (pediatric); J98.4 Other disorders of lung; Z86.73 Personal history of transient ischemic attack (TIA), and cerebral infarction without residual deficits; K74.60 Unspecified cirrhosis of liver; C61 Malignant neoplasm of prostate; I87.2 Venous insufficiency (chronic) (peripheral); M48.00 Spinal stenosis, site unspecified; F32.A Depression, unspecified; F41.9 Anxiety disorder, unspecified
CPT/HCPCS: 36415; 73560; 80053; 83036; 85027; 86850; 86900; 86901; 87070; 94640; 94660; 97110; 97116; 97162; 97166; 97530; 97535; C1713; C1776

== ENCOUNTER → 2025-06-10 10:31 | Outpatient (REF) | payer MEDICARE, BC, SELFPAY ==
[2025-06-10 12:03] LABS: Hematocrit 31.2 % (39.0-52.0); Hemoglobin 9.4 g/dL (13.0-18.0); Mean Corp Hgb Conc. 30.1 g/dL (33.0-37.0); Mean Corpuscular Volume 91.2 fL (80.0-94.0); Platelet Count 150 10^3/uL (130-400); Red Cell Dist. Width 17.7 % (11.5-14.5)
[2025-06-10 12:44] LABS: Blood Urea Nitrogen 19 mg/dl (9-20); Calcium 8.7 mg/dl (8.4-10.2); Carbon Dioxide 31 mmol/L (22-30); Chloride 104 mmol/L (98-107); Glucose 117 mg/dl (70-99); Potassium 3.4 mmol/L (3.5-5.1); Sodium 140 mmol/L (135-145); eGFR > 60.00
== END ==
LOC: OLABP 10:31
PROVIDERS: ATTENDING PHYSICIAN Family Medicine
DX: M17.11 Unilateral primary osteoarthritis, right knee (principal); Z96.651 Presence of right artificial knee joint
CPT/HCPCS: 36415; 80048; 85027

== ENCOUNTER 2025-06-13 08:28 | Emergency (ER) | payer MEDICARE, BC, SELFPAY ==
[2025-06-13] VITALS (26 sets, daily range): BP systolic 96–173; BP diastolic 59–157; BMI 36.4
--- NOTE | 2025-06-13 08:31 | CON.NEURO ---
Addendum entered and electronically signed by Moreno Zurita MD 06/13/25 10:16:
Studies reviewed.
I have personally examined the patient. I reviewed and agree with the SENSITIZER's Note.
My addenda:
Awake, maintains eyes closed, rarely interactive. No acute distress.
Speech mute.
Follows rare one-step requests w/ difficulty. No tremor.
Extra-ocular movements grossly intact.
Facial movements full and symmetric. Hearing intact to normal conversational volume.
Lifts left upper extremity, not right or bilateral lower extremities
Neck: full ROM.
Chest: no dyspnea
Heart: no JVD
Ext: (-) Clubbing, (-) Cyanosis, (-) Edema
IMPRESSIONS/RECOMMENDATIONS:
Abrupt onset of change in mental status most likely secondary to left hemispheric poorly circumscribed tumor with significant cerebral edema involving the entire left hemisphere
Agree with intubation due to the patient's inability to protect airway
Loaded with levetiracetam then 1000 mg twice a day
Initiate dexamethasone 10 mg IV followed by 4 mg every 6 hours
Urgent EEG evaluations to determine if the patient is having continuous seizure activity
Neurosurgical evaluation immediately regarding tumor resection or removal seems appropriate
Total Critical Care Time=�35 minutes.
The neurological system is affected and the action required by me to prevent further deterioration or potential was control over the item listed first in the Impressions and Recommendations section of this note.
I was present and personally examined the patient.� I discussed patient care with other professional health care providers.
Also discussed with family.
Will continue to follow patient.
Original Note:
Documented by User: Kendra Ford NP 06/13/25 09:57
Neuro Assessment/Plan
Assessment
Patient is a 80 year old male with a past medical history of prostate cancer (2019, status post radiation and Lupron injections), afib on apixaban, HTN, HLD who presents to [facility] on 06/13/2025 for evaluation of right-sided hemiplegia and aphasia.
Head CT: Enhancing mass in the left occipital and posterior left temporal region, with associated white matter edema. Appearance is compatible with neoplasia. Primary brain neoplasm such as glioblastoma is a leading consideration. Metastatic disease
would be the next most likely possibility.
Head and neck CTA:
No significant narrowing involving the common carotid arteries, carotid bulbs, or internal carotid arteries bilaterally.
No significant narrowing of the vertebral or basilar arteries.
No evidence for large vessel occlusion or high-grade stenosis. Mild luminal irregularity of the posterior cerebral arteries.
Subtle arterial enhancement in the left temporal occipital region, corresponding to a mass seen on precontrast and postcontrast CT images of the head.
Plan
Impression: abrupt onset of right sided hemiplegia and aphasia due to possible seizure activity from enhancing brain mass with associated edema as evidence by head CT, no evidence of hemorrhage and CVA unlikely
-agree with intubation for airway protection
-obtain EEG
-load with 4 g Levetiracetam and start 1,000 mg BID
-seizure precautions
-give Dexamethasone 10 g now and 4 mg every 6 hours
-transfer to [facility] for evaluation of enhancing brain mass
Plan of care discussed with Dr. Zurita, Dr. Candelaria and nurse
Consultation
Order
Date of Consultation: 06/13/25
Requesting Provider: hospitalist
Reason for Consult: stroke alert
Subjective/Objective
Subjective Data
Date of Service: June 13, 2025
Patient is a 80 year old male with a past medical history of prostate cancer (2019, status post radiation and Lupron injections), afib on apixaban, HTN, HLD who presents to [facility] by EMS from [facility] on 06/13/2025 for evaluation of right-sided
hemiplegia and aphasia. He was residing at [facility] for rehab s/p R TKR (with Dr. Copeland on 06/04/2025) with last known normal today at 7 am. Was supposed to be discharged home and at 7:45 am was found in the bathroom unable to speak or move his
right side. He presented to the hospital as a stroke alert. On arrival he had severe expressive aphasia with right sided hemiplegia. He was also in afib with RVR, HR in the 140s-160s and hypertensive with BP 200/100. BG 210. His NIHSS was 23. He was
taken to head CT which was negative for hemorrhage but concerning for a brain lesion in his left hemisphere. He was intubated for airway protection. Seizure was suspected, he was loaded with 4g Levetiracetam, 10 mg of Decadron and 5 mg Midazolam.
EEG was ordered. Plan to transfer to [facility].
Objective Data
Patient Allergies
rivastigmine Adverse Reaction (Verified 06/04/25 07:56)
Unknown
CVA Assessment
Onset of Stroke Symptoms
Onset of symptoms known: Yes
Date of onset of symptoms: 06/13/25
Time of onset of symptoms: 07:00
Time pt last seen normal is known: Yes
Date last time pt seen normal: 06/13/25
Time last time pt seen normal: 07:00
NIH Stroke Score
Level of Consciousness: 1 - Arousable
LOC Questions: 2-Neither correct
LOC Commands: 1-Performs one correctly
Best Horizontal Gaze: 0-Normal
Visual Gilbert: 0=Normal, no visual loss
Facial Palsy: 0=Normal, symmetrical
Motor - Right Arm: 4=No movement
Motor - Left Arm: 0=No drift 10 seconds
Motor - Right Le-No movement
Motor - Left Le-No movement
Limb Ataxia: 0-Absent
Sensation: 2-Severe loss
Best Language: 3-Mute/global aphasia
Dysarthria: UN-Intubated, other (aphasic)
Extinction and Inattention: 2-Total kay inattention
NIH Total Score:: 23
Tenecteplase Contraindications
Inclusion and Exclusion criteria reviewed: Yes
Reasons for NON-Tx with Thrombolytics ABSOLUTE Exclusions: Patient taking oral anticoagulant and last dose within 48 hours
IAT Contraindications: Imaging doesn't show large vessel occlusion as cause of stroke
Modified Darleen Score (MRS)
-
Modified [place] Scale (mRS): Severe disability. Requires constant nursing care.
Score: 5
Review of Systems
-
Unable to obtain full review of systems at this time due to: Acuity and Aphasia
Physical Exam
-
General: Obese
HEENT: Normocephalic, Atraumatic and Anicteric
Neck: Full Range of Motion
Respiratory: No Dyspnea
Cardiac: Irregular Rhythm
GI: Non-distended
Extremities: Edema +2 (R TKR)
Psych: Unable to Assess
Extended Neurological Exam
Mood & Affect: Unable to Assess
Attention Span & Concentration: Lethargic and Unable to Perform 2 Step Request
Memory: Unable to Assess
Tremor: Hand Tremor Absent and Head Tremor Absent
Speech: Expressive Aphasia
Cranial Nerves III, IV, : Extraocular Movement: Other (tracking)
Cranial Nerve VII: Facial Symmetry: Normal Facial Symmetry
Muscle Strength, Overall: Reduced on Right (right side flaccid)
Data Reviewed
-
CT-A: Report Reviewed and Image Reviewed
CT Head: Report Reviewed and Image Reviewed
EEG: Ordered
Labs: Report Reviewed
Reviewed with: Physician and Nurse
Old Records: Summarized
Medications
-
Home Medications
�Medication �Instructions �Recorded
atenolol 25 mg tablet 50 mg PO DAILY 04/26/22
atorvastatin 40 mg tablet 40 mg PO QPM #90 tabs 04/26/22
escitalopram oxalate 10 mg tablet 20 mg PO DAILY 04/26/22
nitroglycerin 0.4 mg sublingual 0.4 mg sublingual [id number] PRN 04/26/22
tablet chest pain #25 tabs
omeprazole 20 mg capsule,delayed 20 mg PO DAILY 04/26/22
release
potassium chloride 10 mEq 20 meq PO BID 04/26/22
tablet,extended release(part/cryst)
multivitamin 1 tab PO DAILY 01/01/24
cholecalciferol (vitamin D3) 25 25 mcg PO DAILY 02/28/24
mcg (1,000 unit) tablet (Vitamin
D3)
mupirocin 2 % topical ointment 1 applic topical BID infection 02/17/25
prevention #1 tube
albuterol sulfate 90 mcg/actuation 2 inh inhalation Q4 PRN wheeze 05/19/25
aerosol inhaler
trazodone 50 mg tablet 50 mg PO HS PRN sleep 05/19/25
Saccharomyces boulardii 250 mg 250 mg PO BID #10 caps 06/05/25
capsule
apixaban 5 mg tablet (Eliquis) 5 mg PO BID #1 tab 06/05/25
cefadroxil 500 mg capsule 500 mg PO BID #10 caps 06/05/25
docusate sodium 100 mg capsule 100 mg PO BID #30 caps 06/05/25
donepezil 10 mg tablet 10 mg PO HS #1 tab 06/05/25
eplerenone 25 mg tablet 25 mg PO DAILY #1 tab 06/05/25
furosemide 40 mg tablet 40 mg PO BID #1 tab 06/05/25
lidocaine 4 % topical patch 2 patch topical DAILY #30 ea 06/05/25
prochlorperazine maleate 5 mg 5 mg PO Q8H PRN nausea and 06/05/25
tablet vomiting #30 tabs
sennosides 8.6 mg tablet (Mendy-gabriele) 17.2 mg (2 x 8.6 mg) PO BID #30 06/05/25
tabs
acetaminophen 500 mg tablet 500 mg PO Q8H PRN breakthrough 06/06/25
(Tylenol Extra Strength) pain #20 tabs
gabapentin 300 mg capsule 300 mg PO HS neuropathic 06/06/25
pain/sleep #10 caps
tramadol 50 mg tablet 50 - 100 mg (1 - 2 x 50 mg) PO Q6H 06/06/25
PRN moderate-severe pain #15 tabs
Past History
Past History
ED Past Medical History: Arrthythmia, CAD, Cancer, HTN, Hypercholesterolemia and Other
Family/Social History
Tobacco: Non-smoker

Documented by User: Moreno Zurita MD 06/13/25 09:58
CVA Assessment
NIH Stroke Score
NIH Total Score:: 23
Modified [place] Score (MRS)
-
Score: 5
--- NOTE | 2025-06-13 08:33 | ED.CVA ---
History of Present Illness
General
Chief Complaint: CVA/TIA Symptoms
Source: intermediate (spoke with nurse on 4th floor)
Exam Limitations: altered mental status
Time Seen by Provider: 06/13/25 08:31
Onset of Stroke Symptoms
Onset of symptoms known: No
Date of onset of symptoms: 06/13/25
Time pt last seen normal is known: Yes
Date last time pt seen normal: 06/13/25
Time last time pt seen normal: 07:00
History of Present Illness
History of Present Illness:
80-year-old male brought to the emergency room by ambulance from [facility] where he was observed to have right-sided weakness. Patient was at the acute rehab portion of [facility] where he was rehabilitating from right knee surgery. He had a right
knee replacement approximately 1 week ago. Patient does take Eliquis. Somewhat distant history of prostate cancer about 4 to 5 years ago. He received radiation and Lupron. Follow-up imaging was all negative. Patient unable to provide any history
Past History
Past History
ED Past Medical History: Arrthythmia, CAD, Cancer, HTN, Hypercholesterolemia and Other
Social History
Tobacco: Non-smoker
Phy Exam
Physical Exam
Physical Exam:
General: Awake, confused, not responsive to questions, when left arm is raised he will keep it up but he does not really seem to follow most commands. Right side appears hemiplegic.
Vitals: Hypertensive, tachycardic in the 160s at times
Head: Atraumatic
Eyes: Right-sided gaze preference
Throat: Airway intact, no exudates
Neck: Trachea midline
Lungs: Clear and equal b/l
Heart: Regular rate, no murmurs
Abd: Soft, Nontender, No pulsatile mass
Neuro: Essentially right hemiplegia
Skin: Warm, dry, no rash
Extremities: pulses equal b/l, right knee incision noted which appears intact. Swelling noted to right lower extremity which likely postsurgical
Course
Orders/Labs/Results
Orders:
Orders
06/13/25 08:29
Electrocardiogram (*1) Urgent
Reason for Study: Other
Other Reason for Exam: Possible Stroke
Cardiac Monitoring- Treatment ONCE
EKG- Treatment ONCE
IV Insert/Care/Rem.- Treatment PRN
Etomidate [Amidate] 40 mg .ROUTE .STK-MED ONE
Succinylcholine Chloride [Anectine] 200 mg .ROUTE .STK-MED ONE
Vital Signs As Directed
Frequency: Other
Weight As Directed
Frequency: Once
Comment: ZERO STRETCHER SCALE FOR ACCURATE WEIGHT
06/13/25 08:31
CT HEAD STROKE ALERT W/o Cont Urgent
Comment:
Reason For Exam: Right hemiplegia
CT HEAD/NECK ANG STROKE ALERT Urgent
Comment:
Reason For Exam: Right hemiplegia
Complete Blood Count/With Diff Urgent
Comprehensive Metabolic Panel Urgent
PTT Urgent
Prothrombin Time Urgent
Triglycerides Urgent
Troponin I Urgent
06/13/25 08:43
CT Head With Iv Contrast Urgent
Comment:
Reason For Exam: Tumor
06/13/25 08:44
EEG Extend Monitor >1hr Urgent
06/13/25 08:48
Levetiracetam Injectable [Keppra] 4,500 mg IV NOW STA
06/13/25 08:50
Dexamethasone Sod Phosphate [Decadron] 10 mg IV NOW STA
06/13/25 08:52
Midazolam HCl [Versed] 10 mg .ROUTE .STK-MED ONE
06/13/25 09:01
Fentanyl Citrate/Pf [Sublimaze] 100 mcg .ROUTE .STK-MED ONE
06/13/25 09:02
Propofol 1,000,000 Mcg/100 ml [Diprivan] 1,000,000 mcg in 100 ml .ROUTE .STK-MED
Propofol [Diprivan] 20 ml .ROUTE .STK-MED
06/13/25 09:08
Propofol 1,000,000 Mcg/100 ml [Diprivan] 1,000,000 mcg in 100 ml IV NOW
Indication:: Light Sedation
Begin Infusion:: Now
Goal:: RASS 0 to -2
Maximum dose in mcg/kg/min:: 50
Initial dose based on RASS:: Yes
If RASS is:: +1 or pt hemodynamically unstable (SBP < 90mmHg), initiate at 10 mcg/kg/min
If RASS is:: +2, initiate at 20 mcg/kg/min
If RASS is:: greater than or equal to +3, initiate at 30 mcg/kg/min
Titration Instructions:: Titrate by 5-10 mcg/kg/min every 5 minutes until RASS 0 to -2 achieved.
Taper Instructions:: If RASS is at or below goal for 4 consecutive hours decrease infusion by
Taper Instructions:: 5-10 mcg/kg/min every 2 hours to off.
Over-sedation Instructions:: If CPOT 0-2 (at goal) AND RASS -3 to -5 (below goal) decrease sedative by
Over-sedation Instructions:: 50% first. If pain score remains at goal and RASS remains below goal in
Over-sedation Instructions:: 1 hour, decrease opioid infusion by 50%.
Notify provider:: immediately if patient exhibits signs/symptoms of propofol-related
Notify provider:: infusion syndrome.
Additional Instructions:: Patient MUST be mechanically ventilated and MUST receive analgesia.
06/13/25 09:12
Fentanyl Citrate/Pf [Sublimaze] 100 mcg IV NOW STA
Midazolam HCl [Versed] 5 mg IV NOW STA
06/13/25 09:13
Diltiazem 125 mg/125 ml Nss [Cardizem] 125 mg in 125 ml IV NOW
Initial dose in mg/hr, then titrate:: 5
Titrate to keep:: Heart rate 80-100 bpm
Titrate by mg/hr:: 5 mg/hr
Frequency of titrations (minutes):: 15
Maximum dose in mg/hr:: 15
Diltiazem HCl [Cardizem] 20 mg IV NOW STA
Fentanyl Citrate/Pf [Sublimaze] 100 mcg IV NOW STA
06/13/25 09:15
Propofol 1,000,000 Mcg/100 ml [Diprivan] 1,000,000 mcg in 100 ml IV PER PROTOCOL
06/13/25 09:39
CR Chest Portable - 1 View Urgent
Comment:
Reason For Exam: tube placement
Reason Study Needs to be Portable: Patient Unstable
06/13/25 09:55
Add On- LAB Routine
Tests Added?: triglycerides
06/13/25 10:00
FentaNYL 1,000 MCG/100 ML [Sublimaze] 1,000 mcg in 100 ml IV PER PROTOCOL
Fentanyl Citrate/Pf [Sublimaze] 50 mcg IV [id number] PRN
06/13/25 14:00
Dexamethasone Sod Phosphate [Decadron] 4 mg IV Q6H
06/13/25 20:00
Levetiracetam Injectable [Keppra] 1,000 mg IV Q12
Abnormal Lab Results
06/13/25 06/13/25
08:31 08:53
WBC 13.4 H 10^3/uL
(4.8-10.8)
RBC 4.06 L 10^6/uL
(4.70-6.10)
Hgb 11.1 L g/dL
(13.0-18.0)
Hct 37.4 L %
(39.0-52.0)
MCHC 29.7 L g/dL
(33.0-37.0)
RDW 17.8 H %
(11.5-14.5)
Abs Immat Gran (auto) 0.3 H 10^3/uL
(0-0.05)
Absolute Neuts (auto) 11.6 H 10^3/uL
(1.4-6.5)
Absolute Lymphs (auto) 0.9 L 10^3/uL
(1.2-3.4)
Immature Gran % 2.2 H %
(0-0.5)
Neutrophils % 86.4 H %
(42.2-75.2)
Lymphocytes % 6.7 L %
(20.5-51.1)
PT 15.2 H Sec
(11.4-14.6)
Glucose 224 H mg/dl
(70-99)
POC Glucose 248 H mg/dl
(70-99)
06/13/25 08:31
06/13/25 08:31
Vital Signs
Initial and Last Documented VS:
Initial Vital Signs
Pulse Resp BP Pulse Ox
145 20 173/157 88
06/13/25 08:45 06/13/25 08:45 06/13/25 08:45 06/13/25 08:45
Last Documented Vital Signs
Pulse Resp BP Pulse Ox
81 16 116/66 86
06/13/25 10:45 06/13/25 10:45 06/13/25 10:45 06/13/25 10:30
Procedures
Intubations
Procedure completed by: Myself
Method of Intubation: glidescope
Tube size (cm): 8.0
Placement confirmed by: auscutation, CXR, capnography and direct visualization
Intubation complications: no complications
MDM/Problems Addressed
Differential Diagnosis Includes:
Hemorrhagic CVA, ischemic CVA, seizure
MDM/Problems Addressed:
Patient presents with right-sided weakness and confusion. 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 CT perfusion and CT angiogram showed no evidence for acute stroke or large vessel occlusion. Given his tachycardia,
hypertension and confusion we felt seizure secondary to the mass was quite likely. Patient treated with Decadron, Keppra and 5 of Versed. His lethargy worsened after medications requiring intubation. Shortly after the patient the patient's heart
rate went abruptly from the 160s to the 90s. He remained in A-fib but rate was much better controlled. There were no medication given for rate control. Suspect his heart rate improved with the cessation of seizure activity. An EEG was obtained
but he was connected to the EEG after his heart rate improved. No seizure activity noted on the EEG. Contacted [facility] and ultimately spoke with Dr. Conway on-call for neurosurgery. Janusz was excepted as a level 0 to the neuro ICU.
Given that he is intubated and has the potential for instability I believe air transport is most appropriate. Patient does have a history of prostate cancer but unclear if what he has today is a metastatic lesion versus a primary lesion
Chronic conditions affecting care: Arrhythmia (Atrial fibrillation) and Cancer (Prostate)
*Radiology
Radiology exam reviewed: radiology read reviewed
*Pulse Oximetry
SaO2: 88
Nasal Cannula flow liters per minute: 2
Patient hypoxic: yes
*EKG
Interpreted by ED Provider?: Yes
Interpretation: abnormal
Heart Rate: 146
Rate: tachycardiac
Rhythm: a-fib
QRS Pattern: left vent hypertrophy and other (LAF block)
Ischemia: non-specific ST changes
*Electrical Engineering Drafting Officer Interpretation
Rate: tachycardiac
Interpretation: abnormal
Heart Rate: 146
Rhythm: a-fib
*Critical Care Note
Total Time (30-74mins, 75-104mins- exclusive of procedures): 65 min
comment:
Critical care statement: A total of 65 minutes of critical care time was provided for this patient. This includes management of unstable vital signs, evaluation of the patient at bedside, reviewing the patient's pertinent medical records, discussion
with consultants, review of old EKGs and review of pertinent medical records. This time with separate from time utilized to perform the aforementioned documented procedures
ED Attending Note
-
Portions of this chart may have been created with voice recognition software.� Occasional wrong word or��sound alike� substitutions may have occurred due to the inherent limitations of voice recognition software.
Discharge Plan
Departure
Patient Disposition: Acute Care Hospital
Date of Disposition: 06/13/25
Time of Disposition: 10:12
Discharge Problem:
Mass of cerebral hemisphere, Seizure disorder, Respiratory failure
Prescriptions:
No Action
atenolol 25 MG tablet
50 mg PO DAILY
omeprazole 20 MG capsule,delayed release(DR/EC)
20 mg PO DAILY
potassium chloride 10 MEQ tablet,ER particles/crystals
20 meq PO BID
atorvastatin 40 MG tablet
40 mg PO QPM Qty: 90 10RF
nitroglycerin 0.4 MG tablet, sublingual
0.4 mg sublingual [id number] PRN (Reason: chest pain) Qty: 25 5RF
cholecalciferol (vitamin D3) [Vitamin D3] 25 mcg (1,000 unit) Tablet
25 mcg PO DAILY
trazodone 50 mg Tablet
50 mg PO HSPRN PRN (Reason: sleep)
albuterol sulfate 90 mcg/actuation HFA aerosol inhaler
2 inh INHALATION R Q4HPRN PRN (Reason: sob)
docusate sodium 100 mg Capsule
100 mg PO BID Qty: 30 0RF
donepezil 10 mg Tablet
10 mg PO HS Qty: 1 0RF
Saccharomyces boulardii 250 mg Capsule
250 mg PO BID Qty: 10 0RF
sennosides [Mendy-gabriele] 8.6 mg Tablet
17.2 mg PO BID Qty: 30 0RF
furosemide 40 mg Tablet
40 mg PO BID Qty: 1 0RF
eplerenone 25 mg Tablet
25 mg PO DAILY Qty: 1 0RF
Eliquis 5 MG tablet
5 mg PO BID Qty: 1 0RF
gabapentin 300 mg Capsule
300 mg PO HS Qty: 10 0RF
Theragen Tablet
1 tab PO DAILY
tramadol 50 mg Tablet
50 mg PO Q6HPRN PRN (Reason: moderate pains scale 6-10)
magnesium hydroxide [Milk of Magnesia] 400 mg/5 mL Suspension
2,400 mg PO [id number] PRN (Reason: if no bm by 3rd day give on 4th day)
bisacodyl [Dulcolax (bisacodyl)] 10 mg Suppository
10 mg WV DAILYPRN PRN (Reason: if no bm aftr mom)
Fleet Enema 19-7 gram/118 mL Enema
118 ml WV DAILYPRN PRN (Reason: if no bm aftr dulcoalx)
escitalopram oxalate [Lexapro] 20 mg Tablet
20 mg PO DAILY
lidocaine 4 % adhesive patch,medicated
1 patch topical DAILY
prochlorperazine maleate 5 mg tablet
5 mg PO Q8HPRN PRN (Reason: nausea and vomiting)
tramadol 50 mg tablet
50 mg PO HS
acetaminophen [Tylenol Extra Strength] 500 mg tablet
500 mg PO Q8H
mupirocin 2 % ointment
1 applic topical BID
Referrals:
Sivan Garcia DO [Family Provider, General]
Hospital Transfer
Other hospital: [facility]
I certify that the patient requires transfer: Yes
Discussed case with accepting physician: Alfredo
Reason for transfer: specialties available
Interventions
Interventions:
*Risk Screen - Suicide Last Done: 06/13/25 09:30
*General Assessment Last Done: 06/13/25 08:45
*Neglect/Abuse Screening Last Done: 06/13/25 09:30
*ED- Fall Risk Assessment Last Done: 06/13/25 09:30
*ED COVID-19 Vaccine History Last Done: 06/13/25 08:45
*Nursing Disposition Last Done: 06/13/25 10:45
ED- Pulmonary Assessment Last Done: 06/13/25 09:30
ED- Neurological Assessment Last Done: 06/13/25 09:15
ED- Cardiac Assessment Last Done: 06/13/25 09:30
Discharge Date and Time
Discharge Date/Time: 06/13/25 10:45
Print Language: TELUGU
[2025-06-13 08:40] LABS: Hematocrit 37.4 % (39.0-52.0); Hemoglobin 11.1 g/dL (13.0-18.0); Mean Corp Hgb Conc. 29.7 g/dL (33.0-37.0); Mean Corpuscular Volume 92.1 fL (80.0-94.0); Nucleated Red Blood Cells % 0 % (-); Platelet Count 304 10^3/uL (130-400); Red Cell Dist. Width 17.8 % (11.5-14.5)
[2025-06-13 08:50] LABS: INR 1.17; PT 15.2 Sec (11.4-14.6)
[2025-06-13 08:51] LABS: APTT 29.0 Sec (23.4-35.0)
[2025-06-13 08:53] LABS: ALT (SGPT) 23 U/L (0-50); AST (SGOT) 24 U/L (17-59); Albumin 4.4 g/dl (3.5-5.0); Alkaline Phosphatase 115 U/L (38-126); Blood Urea Nitrogen 15 mg/dl (9-20); Calcium 9.3 mg/dl (8.4-10.2); Carbon Dioxide 30 mmol/L (22-30); Chloride 106 mmol/L (98-107); Glucose 224 mg/dl (70-99); Potassium 4.5 mmol/L (3.5-5.1); Sodium 143 mmol/L (135-145); Total Protein 7.3 g/dl (6.3-8.2); eGFR > 60.00
[2025-06-13 08:54] LABS: Glucose - Point of Care 248 mg/dl (70-99)
[2025-06-13] MEDS: VERSED 5 MG IV (08:55)
[2025-06-13] MEDS: DECADRON 10 MG IV (08:57)
[2025-06-13] MEDS: SUBLIMAZE 100 MCG IV (09:05)
[2025-06-13] MEDS: KEPPRA 4500 MG IV (09:10)
[2025-06-13] MEDS: DIPRIVAN 100 IV (09:13)
--- NOTE | 2025-06-13 09:16 | EDRN ---
[address] scan with this RN, Dr Candelaria and Dr Zurita.
0855 Versed 5 mg given
0857 Decadron 10 mg given
09 Etomidate 30 mg and Succinylcholine 100 mg given. ETT 8.0, 23 cm R lip, RR 16, TV 550, PEEP 5, 40% FiO2 - O2 sat on vent settings 100%
09 Fentanyl 100 mcg given
909 Keppra 4500 mg given
09 Propofol started at 5 mcg/kg/min
09 technical applications specialist at bedside
Pending transfer to [facility]. Sister updated and aware. HR 114 RR 18 BP 108/75 O2 sat 100%
--- NOTE | 2025-06-13 09:20 | EDRN ---
NIH 23 - see neuro assessment. R side flaccid on arrival, nonverbal, opens eyes to verbal. Last seen normal by spouse and daughter last evening approx 2029. Rapid a-fib 140-150s on arrival, rate dec to 90-110s following intubation.
[2025-06-13 09:29] LABS: Troponin I < 0.012 ng/ml
--- NOTE | 2025-06-13 09:58 | EDRN ---
Portable CXR performed.
Pending transfer to [facility] [id number]
Propofol infusing at 10 mcg/kg/min
Pt spontaneously lifted RUE off of stretcher above head then immediately back down onto stretcher. RUE was flaccid on arrival.
[2025-06-13] MEDS: SUBLIMAZE 100 IV (10:05)
--- NOTE | 2025-06-13 10:29 | EEG.RPT ---
Electroencephalogram Report
Recording
Date of EE06/13/25
Type of EEG: Routine and Portable
Length of EEG recordin minutes
Done with Video Recording: Yes
Patient Status: Emergency Room
Recording Conditions: Drowsy and Asleep
Hyperventilation Performed: No
Photic Stimulation Performed: Yes
Report
GREATER THAN 1 HOUR REPORT
GREATER THAN 1 HOUR EEG INTERPRETATION:
Moderately to severely abnormal EEG for age in wakefulness through drowsiness due to a left fronto-temporal predominant generalizing discharges
CLINICAL CORRELATION:
This study was suggestive of bifrontal cortical dysfunction in drowsiness and a left frontal abnormality producing focal slowing. Clinical correlation is advised.
METHODS:
A 21 channel digitized electroencephalogram (EEG) was performed at the bedside in the emergency department. The 10/20 international system of electrode placement was used with ECG and lateral/vertical eye movements recorded. Video was recorded.
Persyst quantitative EEG analysis was utilized.
ELECTROENCEPHALOGRAPHER IMPRESSION(S):
Quality of study
Good
Background
There was a poorly formed medium amplitude anterior to posterior voltage gradient
Posterior rhythm is delta frequency.
Sleep
Drowsiness present
Photic Stimulation
Failed to activate the record.
ECG
Normal sinus rhythm
Abnormal Findings
In drowsiness was near continuous left (T3 maximal) frontal rhythmic delta activity (LPD) of monophasic medium to high amplitudes
--- NOTE | 2025-06-13 10:36 | EDRN ---
Report to Selin GRIFFITHS at [facility].
--- NOTE | 2025-06-13 10:45 | EDRN ---
Pt with slight movements and sedation increased- Propofol infusing at 20 mg and Fentanyl at 75 mcg. Clinical condition otherwise unchanged.
Report to Karen with [facility]. [facility]SS. Stable for transfer at this time.
[2025-06-13 11:19] LABS: Triglycerides 89 mg/dl (10-149)
== END 2025-06-13 10:45 | disposition short-term general hospital (02) ==
LOC: EMR 08:28
PROVIDERS: EMERGENCY PHYSICIAN Emergency Medicine; FAMILY PHYSICIAN Family Medicine; OTHER PHYSICIAN Psychiatry & Neurology Neurology
DX: R22.0 Localized swelling, mass and lump, head (principal); J96.90 Respiratory failure, unspecified, unspecified whether with hypoxia or hypercapnia; G40.909 Epilepsy, unspecified, not intractable, without status epilepticus; I10 Essential (primary) hypertension; G81.91 Hemiplegia, unspecified affecting right dominant side; Z96.651 Presence of right artificial knee joint; Z85.46 Personal history of malignant neoplasm of prostate
CPT/HCPCS: 99291; 31500; 96374; 96375 ×4; 96376; 70450; 70460; 70496; 70498; 71045; 80053; 82962; 84478; 84484; 85025; 85610; 85730; 93005; 94002; 95813; Q9967